=== PATIENT | male | born 1955 | race Caucasian/White ===

== ENCOUNTER → 2023-05-10 08:32 | Outpatient (REF) | payer MEDICARE, OTHER, SELFPAY ==
[2023-05-10 09:43] LABS: % Basophils 1.5 % (0-2); % Eosinophils 6.7 % (0-6); % Immature Granulocytes 0.2 % (0-0.5); % Monocytes 7.5 % (1.7-9.3); % Neutrophils 67.1 % (42.2-75.2); Absolute Basophils 0.1 10^3/uL (0-0.2); Absolute Eosinophils 0.6 10^3/uL (0-0.7); Absolute Lymphocytes 1.5 10^3/uL (1.2-3.4); Absolute Monocytes 0.7 10^3/uL (0.1-0.6); Absolute Neutrophils 6.1 10^3/uL (1.4-6.5); Hematocrit 37.6 % (39.0-52.0); Hemoglobin 12.4 g/dL (13.0-18.0); Mean Corpuscular Hgb 28.8 pg (27.0-31.0); Mean Corpuscular Volume 87.2 fL (80.0-94.0); Mean Platelet Volume 11.4 fL (7.4-10.4); Nucleated Red Blood Cells % 0 % (-); Platelet Count 231 10^3/uL (130-400); Red Blood Cell Count 4.31 10^6/uL (4.70-6.10); Red Cell Dist. Width 13.3 % (11.5-14.5); White Blood Cell Count 9.1 10^3/uL (4.8-10.8)
[2023-05-10 10:28] LABS: ALT (SGPT) 17 U/L (0-50); AST (SGOT) 23 U/L (17-59); Albumin 3.9 g/dl (3.5-5.0); Alkaline Phosphatase 70 U/L (38-126); Blood Urea Nitrogen 23 mg/dl (9-20); Carbon Dioxide 30 mmol/L (22-30); Chloride 103 mmol/L (98-107); Glucose 95 mg/dl (70-99); HDL Cholesterol 37 mg/dl; LDL Cholesterol, Calculated 43 mg/dl; Potassium 3.6 mmol/L (3.5-5.1); Sodium 139 mmol/L (135-145); Total Bilirubin 0.7 mg/dl (0.2-1.3); Total Cholesterol 92 mg/dl (50-199); Total Protein 6.6 g/dl (6.3-8.2); Triglyceride 61 mg/dl (10-149); Very Low Density Lipoprotein 12 mg/dl (0-30); eGFR 40.24
[2023-05-10 10:50] LABS: PSA, Total - Screen 2.94 ng/ml (0.0-4.0)
[2023-05-10 11:41] LABS: Glycohemoglobin (HgbA1c) 5.8 % (4.0-5.6)
== END ==
LOC: REG 08:32
PROVIDERS: ATTENDING PHYSICIAN Internal Medicine
DX: E11.9 Type 2 diabetes mellitus without complications (principal); E78.5 Hyperlipidemia, unspecified; I10 Essential (primary) hypertension; R73.9 Hyperglycemia, unspecified; E66.9 Obesity, unspecified; Z12.5 Encounter for screening for malignant neoplasm of prostate; Z00.00 Encounter for general adult medical examination without abnormal findings
CPT/HCPCS: 36415; 80053; 80061; 83036; 85025; G0103

== ENCOUNTER → 2023-07-05 09:15 | Outpatient (REF) | payer MEDICARE, OTHER, SELFPAY ==
[2023-07-05 10:42] LABS: % Basophils 1.3 % (0-2); % Eosinophils 11.9 % (0-6); % Immature Granulocytes 0.3 % (0-0.5); % Lymphocytes 16.9 % (20.5-51.1); % Monocytes 7.2 % (1.7-9.3); % Neutrophils 62.4 % (42.2-75.2); Absolute Basophils 0.1 10^3/uL (0-0.2); Absolute Eosinophils 1.1 10^3/uL (0-0.7); Absolute Lymphocytes 1.5 10^3/uL (1.2-3.4); Absolute Monocytes 0.7 10^3/uL (0.1-0.6); Absolute Neutrophils 5.7 10^3/uL (1.4-6.5); Hematocrit 35.2 % (39.0-52.0); Hemoglobin 11.9 g/dL (13.0-18.0); Mean Corp Hgb Conc. 33.8 g/dL (33.0-37.0); Mean Corpuscular Hgb 28.5 pg (27.0-31.0); Mean Corpuscular Volume 84.2 fL (80.0-94.0); Mean Platelet Volume 10.9 fL (7.4-10.4); Nucleated Red Blood Cells % 0 % (-); Platelet Count 243 10^3/uL (130-400); Red Blood Cell Count 4.18 10^6/uL (4.70-6.10); Red Cell Dist. Width 13.8 % (11.5-14.5); White Blood Cell Count 9.1 10^3/uL (4.8-10.8)
[2023-07-05 10:56] LABS: Urine Albumin 1+ (Neg - Trace); Urine Bilirubin Negative (Negative); Urine Character Clear (Clear); Urine Color Yellow; Urine Glucose Negative (Negative); Urine Ketone Negative (Negative); Urine Leukocyte Negative (Negative); Urine Nitrite Negative (Negative); Urine Occult Blood Negative (Negative); Urine Urobilinogen 1+ (Neg - 1+); Urine pH 6.5 (5.0-9.0)
[2023-07-05 11:44] LABS: Urine Red Blood Cell None Seen /HPF (0-2); Urine Squamous Cell 0-2 /LPF (Few); Urine White Cell 0-2 /HPF (0-5)
[2023-07-05 11:58] LABS: Blood Urea Nitrogen 25 mg/dl (9-20); Calcium 9.2 mg/dl (8.4-10.2); Carbon Dioxide 27 mmol/L (22-30); Chloride 104 mmol/L (98-107); Glucose 100 mg/dl (70-99); Iron 100 ug/dl (49-181); Phosphorus 3.9 mg/dl (2.5-4.5); Potassium 3.4 mmol/L (3.5-5.1); Sodium 139 mmol/L (135-145)
[2023-07-05 12:07] LABS: Percent Saturation 31 % (20-50); Total Iron Binding Capacity 313 ug/dl (261-462)
[2023-07-05 13:00] LABS: Folate 10.4 ng/ml (2.76-20); Vitamin B12 193 pg/ml (239-931)
== END ==
LOC: REG 09:15
PROVIDERS: ATTENDING PHYSICIAN Specialist; FAMILY PHYSICIAN Internal Medicine
DX: D64.9 Anemia, unspecified (principal); I10 Essential (primary) hypertension; N18.32 Chronic kidney disease, stage 3b; E11.9 Type 2 diabetes mellitus without complications; I35.8 Other nonrheumatic aortic valve disorders; M62.81 Muscle weakness (generalized); D52.9 Folate deficiency anemia, unspecified
CPT/HCPCS: 36415; 80048; 81003; 81015; 82570; 82607; 82746; 83540; 83550; 83970; 84100; 84403; 85025

== ENCOUNTER → 2023-08-29 08:35 | Outpatient (REF) | payer MEDICARE, OTHER, SELFPAY ==
[2023-08-29 09:55] LABS: Blood Urea Nitrogen 26 mg/dl (9-20); Carbon Dioxide 27 mmol/L (22-30); Chloride 106 mmol/L (98-107); Glucose 103 mg/dl (70-99); Potassium 4.2 mmol/L (3.5-5.1); Sodium 139 mmol/L (135-145); eGFR 40.24
== END ==
LOC: REG 08:35
PROVIDERS: ATTENDING PHYSICIAN Internal Medicine; FAMILY PHYSICIAN Specialist; REFERRING PHYSICIAN Internal Medicine Cardiovascular Disease
DX: I10 Essential (primary) hypertension (principal)
CPT/HCPCS: 36415; 80048

== ENCOUNTER → 2023-09-19 08:39 | Outpatient (REF) | payer MEDICARE, OTHER, SELFPAY ==
[2023-09-19 09:43] LABS: ALT (SGPT) 13 U/L (0-50); AST (SGOT) 19 U/L (17-59); Albumin 3.9 g/dl (3.5-5.0); Alkaline Phosphatase 80 U/L (38-126); Blood Urea Nitrogen 20 mg/dl (9-20); Calcium 9.7 mg/dl (8.4-10.2); Carbon Dioxide 28 mmol/L (22-30); Chloride 105 mmol/L (98-107); Direct Bilirubin 0.1 mg/dl (0.0-0.4); Glucose 102 mg/dl (70-99); HDL Cholesterol 42 mg/dl; LDL Cholesterol, Calculated 72 mg/dl; Potassium 3.9 mmol/L (3.5-5.1); Sodium 138 mmol/L (135-145); Total Bilirubin 0.4 mg/dl (0.2-1.3); Total Cholesterol 125 mg/dl (50-199); Total Protein 6.4 g/dl (6.3-8.2); Triglyceride 56 mg/dl (10-149); Very Low Density Lipoprotein 11 mg/dl (0-30)
[2023-09-19 10:21] LABS: Glycohemoglobin (HgbA1c) 5.4 % (4.0-5.6)
== END ==
LOC: REG 08:39
PROVIDERS: ATTENDING PHYSICIAN Internal Medicine; OTHER PHYSICIAN Specialist; REFERRING PHYSICIAN Internal Medicine Cardiovascular Disease
DX: E11.9 Type 2 diabetes mellitus without complications (principal); E78.5 Hyperlipidemia, unspecified; I10 Essential (primary) hypertension; E66.9 Obesity, unspecified; I67.4 Hypertensive encephalopathy
CPT/HCPCS: 36415; 80053; 80061; 82248; 83036

== ENCOUNTER → 2023-11-22 08:35 | Outpatient (REF) | payer MEDICARE, OTHER, SELFPAY ==
[2023-11-22 11:33] LABS: ALT (SGPT) 18 U/L (0-50); AST (SGOT) 25 U/L (17-59); Alkaline Phosphatase 61 U/L (38-126); Direct Bilirubin 0.3 mg/dl (0.0-0.4); Glucose 95 mg/dl (70-99); HDL Cholesterol 39 mg/dl; LDL Cholesterol, Calculated 42 mg/dl; Total Bilirubin 0.8 mg/dl (0.2-1.3); Total Cholesterol 100 mg/dl (50-199); Total Protein 6.6 g/dl (6.3-8.2); Triglyceride 96 mg/dl (10-149); Very Low Density Lipoprotein 19 mg/dl (0-30)
[2023-11-22 13:01] LABS: Glycohemoglobin (HgbA1c) 5.3 % (4.0-5.6)
== END ==
LOC: REG 08:35
PROVIDERS: ATTENDING PHYSICIAN Internal Medicine
DX: E11.59 Type 2 diabetes mellitus with other circulatory complications (principal); I10 Essential (primary) hypertension; E78.5 Hyperlipidemia, unspecified; Z68.41 Body mass index [BMI] 40.0-44.9, adult
CPT/HCPCS: 36415; 80061; 80076; 82947; 83036

== ENCOUNTER → 2023-11-29 08:20 | Outpatient (REF) | payer MEDICARE, OTHER, SELFPAY | LOC: RCS 08:20 | PROVIDERS: ATTENDING PHYSICIAN Internal Medicine | DX: E78.5 Hyperlipidemia, unspecified (principal); I35.8 Other nonrheumatic aortic valve disorders | CPT/HCPCS: 93306 ==

== ENCOUNTER 2024-01-18 19:23 | Observation (INO) | payer MEDICARE, OTHER, SELFPAY ==
[2024-01-18 17:45] VITALS: BP 178/86
[2024-01-18 17:47] LABS: Glucose - Point of Care 128 mg/dl (70-99)
[2024-01-18 17:49] VITALS: BMI 35.0
[2024-01-18 17:50] VITALS: BP 178/86
--- NOTE | 2024-01-18 17:52 | ED.CVA ---
History of Present Illness
General
Chief Complaint: CVA/TIA Symptoms
Source: patient, family and ambulance crew
Exam Limitations: none
Time Seen by Provider: 01/18/24 17:50
Nursing documentation reviewed up to this point in time: agreed with
Onset of Stroke Symptoms
Onset of symptoms known: Yes
Date of onset of symptoms: 01/18/24
Time of onset of symptoms: 15:00
Time pt last seen normal is known: Yes
Date last time pt seen normal: 01/18/24
Time last time pt seen normal: 12:00
History of Present Illness
History of Present Illness:
68 yo male presents to the emergency department due to difficulty speaking. He was last seen normal at noon. Stroke alert called prior to his arrival.
Past History
Past History
ED Past Medical History: GERD, HTN, Hypercholesterolemia, NIDDM, Psychiatric and Other (Angioedema, TIA, Ulcers)
ED Past Surgical History: Cardiac (Cardiac catheterization), Orthopedic (Knee replacement, ankle surgery, epidural, back surgery) and Other (Achilles tendon repair and tendon transfer on 03/2011)
Social History
Tobacco: Former smoker
Alcohol: Occasional
Drug: None
Personal:
Living: with family
Employment: Employed
Family History
Family History: Sudden
Review of Systems
Review of Systems
Allergies reviewed?: Yes
All Other Systems: Not applicable
Constitutional: Reports no symptoms
EENT: Reports no symptoms
Respiratory: Reports no symptoms
Cardiac: Reports no symptoms
ABD/GI: Reports no symptoms
: Reports no symptoms
Musculoskeletal: Reports no symptoms
Skin: Reports no symptoms
Neurological: Reports other (Difficulty speaking)
Endocrine: Reports no symptoms
Hematologic/Lymphatic: Reports no symptoms
Psychiatric: Reports no symptoms
Phy Exam
Physical Exam
Physical Exam:
Physical Exam
General: no apparent distress, not acutely ill
Neck: supple. no meningeal signs. normal posterior pharynx
Heart: s1/s2 regular rate and rhythm, no murmur. equal radial
pulses.
HEENT: Pupils equal round reactive to light, EOMI
Lungs: no acute respiratory distress. clear bilaterally
Abdomen: normal bowel sounds. not tender. no CVAT
Neuro: alert and oriented. Occasionally confused to events. No focal neurological deficits cranial nerves II through XII intact
Skin: no rash
Psychiatric: well kept. interactive and cooperative
Extremities: no edema. no calf tenderness. negative homans. good distal pulses
Course
Orders/Labs/Results
Orders:
Orders
01/18/24 Dinner
1800 calorie (15 carb) Diabetic
At Your Request: Full Participation
Does patient need a safe tray?: No
01/18/24 17:50
Electrocardiogram (*1) Urgent
Reason for Study: TIA/Stroke
EKG- Treatment ONCE
01/18/24 17:51
CT HEAD STROKE ALERT W/o Cont Urgent
Reason For Exam: confusion, altered mental status
01/18/24 17:52
Complete Blood Count/With Diff Urgent
Comprehensive Metabolic Panel Urgent
Erythrocyte Sed Rate Urgent
Comment: ADDON
Glycohemoglobin (HgbA1c) Urgent
Magnesium Urgent
Comment: ADDON
Troponin I Urgent
01/18/24 18:28
EEG Routine Routine
Reason for Exam: encephalopathy
01/18/24 18:33
Add On- LAB Urgent
Tests Added?: magnesium
01/18/24 18:40
Potassium Chloride [KCl] 40 meq 0.9% Sodium Chloride 250 ml [Nss] 250 ml IV NOW
01/18/24 19:14
Admit/Transfer Patient As Directed
Co-Sign Provider:
Level of Care: Observation services
Assign to:: Telemetry
Physician / Group: hospitalist
Diagnosis: CVA/TIA
Reason for Telemetry: CVA/TIA
Date to Stop Telemetry: 01/21/24
Time to Stop Telemetry: 11:00
PRN Pain Medication Management As Directed
May give lesser potent ordered pain med per pt: Yes
preference::
Protocol:: Medication orders for pain may be administered in a
manner that supports deferring to patient preference
when the pt is:
- Requesting an ordered lesser potent pain medication.
Least to most potent pain medications are defined
as: acetaminophen < NSAID < tramadol < opioids
(morphine, oxycodone, hydromorphone).
- Requesting a lesser dose of the same medication IF
ORDERED.
- Requesting a less intrusive route of administration
if both routes are prescribed by the provider (PO <
IV).
01/18/24 19:15
Code Status As Directed
Resuscitation Status: Full Code
01/18/24 19:18
Aspirin 325 mg PO NOW STA
01/18/24 19:20
Potassium Chloride Powder [Klor-Con] 40 meq PO NOW STA
01/18/24 19:21
Urinalysis Routine
Date Specimen was Collected: 01/18/24
Time Specimen was Collected: 19:16
Comment: ADD ON
Urine Drug Abuse Screen Routine
Date Specimen was Collected: 01/18/24
Time Specimen was Collected: 19:16
Urine Microscopic Routine
Date Specimen was Collected: 01/18/24
Time Specimen was Collected: 19:16
01/18/24 20:20
Acetaminophen [Tylenol/Feverall] 650 mg RECTAL Q4HPRN PRN
Acetaminophen [Tylenol] 650 mg PO Q4HPRN PRN
Doxazosin Mesylate [Cardura] 4 mg PO BID
Heparin 5,000 units SC Q12
HydrALAZINE [Apresoline] 10 mg IV Q4HPRN PRN
HydrALAZINE [Apresoline] 50 mg PO BID
01/18/24 20:20
Echo 2D MMode Color/Doppler Routine
Reason for Study: stroke/TIA
NEUROLOGY CONSULT Routine
Consulting Provider: Nevin De Paz
Was physician already notified: Yes
Reason for consult: altered mental status
MR Brain Without Contrast Routine
Comment:
Reason For Exam: stroke/TIA
Recent pill cam endoscopy?: No
Activity As Directed
Activity Level: With Assistance
Bedside Glucose Monitoring As Directed
Frequency: AC&HS
NIH Stroke Scale As Directed
Directions: Per protocol
Comment: every shift and with any change in condition or mental status
Neurological Checks As Directed
Frequency: q4h
Additional Instructions:: q4h x 24h upon admission to the floor, then qshift & with any change in condition
and mental status
Vital Signs As Directed
Frequency: Per unit guidelines
Cpap [RESP] Routine
Patient to use own unit?: No
Set Pressure (cm H2O): 8
Instructions: adjust to patient's comfort
US Cerebrovascular Routine
Comment:
Reason For Exam: stroke/TIA
DX Deep Vein Thrombosis Video Routine
01/18/24 21:00
Dorzolamide HCl [Trusopt 2% Ophthalmic Solution] 1 drop BOTH EYES BID
01/19/24 06:00
Basic Metabolic Panel IN AM
CRP [C-Reactive Protein] IN AM
Cardiovascular Evaluation IN AM
Magnesium IN AM
01/19/24 07:30
Insulin Aspart Corrective Low [Novolog Flexpen-Low Resistance] See Protocol SC AC
01/19/24 08:00
Amlodipine [Norvasc] 10 mg PO DAILY
Atorvastatin [Lipitor] 40 mg PO DAILY
Clopidogrel Bisulfate [Plavix] 75 mg PO DAILY
Duloxetine Delayed Release [Cymbalta Delayed Release] 60 mg PO DAILY
Hydrochlorothiazide [Oretic] 25 mg PO DAILY
METFORMIN HCl [Glucophage] 1,000 mg PO BID@0800,1700
Modafinil [Provigil] 200 mg PO DAILY
Pantoprazole [Protonix] 40 mg PO DAILY
nebivolol 10 mg PO DAILY
solifenacin [Vesicare] 10 mg PO DAILY
01/21/24 11:00
DC Protocol for Telemetry ONCE
Abnormal Lab Results
01/18/24 01/18/24 01/18/24
17:46 17:52 19:21
RBC 4.25 L 10^6/uL
(4.70-6.10)
Hgb 12.2 L g/dL
(13.0-18.0)
Hct 37.2 L %
(39.0-52.0)
MCHC 32.8 L g/dL
(33.0-37.0)
Absolute Neuts (auto) 6.7 H 10^3/uL
(1.4-6.5)
Lymphocytes % 14.5 L %
(20.5-51.1)
Eosinophils % 6.3 H %
(0-6)
Potassium 3.0 L mmol/L
(3.5-5.1)
BUN 25 H mg/dl
(9-20)
Creatinine 1.7 H mg/dL
(0.7-1.3)
Glucose 112 H mg/dl
(70-99)
Calcium 7.9 L mg/dl
(8.4-10.2)
Troponin I 0.049 H* ng/ml
Total Protein 5.9 L g/dl
(6.3-8.2)
Albumin 3.3 L g/dl
(3.5-5.0)
Urine Albumin 2+ A
(Neg - Trace)
POC Glucose 128 H mg/dl
(70-99)
01/18/24 17:52
01/18/24 17:52
Vital Signs
Initial and Last Documented VS:
Initial Vital Signs
Temp Pulse Resp BP Pulse Ox
98.2 F 78 18 178/86 98
01/18/24 17:45 01/18/24 17:45 01/18/24 17:45 01/18/24 17:45 01/18/24 17:45
Last Documented Vital Signs
Temp Pulse Resp BP Pulse Ox
97.9 F 70 20 191/84 98
01/18/24 20:22 01/18/24 21:26 01/18/24 20:22 01/18/24 21:26 01/18/24 20:22
MDM/Problems Addressed
Differential Diagnosis Includes:
CVA, UTI
MDM/Problems Addressed:
68-year-old male with altered mental status, unclear etiology. Patient seen on stroke alert, by neurology. CVA. No focal deficits. Admit to hospitalist for further evaluation.
Chronic conditions affecting care: HTN
Acute Exacerbation and/or Progression of Chronic Illness: HTN
*Radiology
Radiology exam reviewed: radiology read reviewed (CT head no acute findings)
*Pulse Oximetry
Patient hypoxic: no
*EKG
Interpreted by ED Provider?: Yes
EKG Intrepretation Date: 01/18/24
EKG Intrepretation Time: 17:55
Interpretation: abnormal
Comparison EKG: no changes
Heart Rate: 84
Rate: normal
Rhythm: sinus
[place]: normal axis
Interval: normal interval
QRS Pattern: left vent hypertrophy
Ischemia: no ischemia
*Fire Prevention Captain Interpretation
Rate: normal
Interpretation: normal
Heart Rate: 80
Rhythm: sinus
*Critical Care Note
Total Time (30-74mins, 75-104mins- exclusive of procedures): 30
comment:
Critical care statement: A total of 30 minutes of critical care time was provided for this patient. This includes management of unstable vital signs, evaluation of the patient at bedside, reviewing the patient's pertinent medical records, discussion
with consultants, review of old EKGs and review of pertinent medical records. This time with separate from time utilized to perform the aforementioned documented procedures
Data Reviewed
Review of Other/Old Records Reveals: Labs (Prior creatinine 1.7)
Source: records
Patient Management
Social determinants of health affecting care: Living situation
Discussion with other providers: Hospitalist
Escalation/DeEscalation of care consider admission/obs:
Admit indicated.
ED Attending Note
-
Portions of this chart may have been created with voice recognition software.� Occasional wrong word or��sound alike� substitutions may have occurred due to the inherent limitations of voice recognition software.
Discharge Plan
Departure
Patient Disposition: Admit
Date of Disposition: 01/18/24
Time of Disposition: 18:36
Admit to: Telemetry
Presentation/result/management discussed w/ accepting MD/DO: Hospitalist
Condition: Fair
Discharge Problem:
Acute alteration in mental status, Acute hypokalemia
Interventions
Interventions:
*Risk Screen - Suicide Last Done: 01/18/24 20:36
*General Assessment Last Done: 01/18/24 17:53
*Neglect/Abuse Screening Last Done: 01/18/24 17:53
ED- Fall Risk Assessment Last Done: 01/18/24 17:52
*ED COVID-19 Vaccine History Last Done: 01/18/24 17:49
*Nursing Disposition Last Done: 01/18/24 20:16
ED- Pulmonary Assessment Last Done: 01/18/24 17:54
ED- Neurological Assessment Last Done: 01/18/24 17:54
ED- Cardiac Assessment Last Done: 01/18/24 17:56
ED Swallowing Screen Last Done: 01/18/24 19:11
Discharge Date and Time
Discharge Date/Time: 01/18/24 20:20
[2024-01-18 17:58] LABS: % Basophils 1.2 % (0-2); % Eosinophils 6.3 % (0-6); % Immature Granulocytes 0.3 % (0-0.5); % Lymphocytes 14.5 % (20.5-51.1); % Monocytes 6.6 % (1.7-9.3); % Neutrophils 71.1 % (42.2-75.2); Absolute Basophils 0.1 10^3/uL (0-0.2); Absolute Eosinophils 0.6 10^3/uL (0-0.7); Absolute Lymphocytes 1.4 10^3/uL (1.2-3.4); Absolute Monocytes 0.6 10^3/uL (0.1-0.6); Absolute Neutrophils 6.7 10^3/uL (1.4-6.5); Hematocrit 37.2 % (39.0-52.0); Hemoglobin 12.2 g/dL (13.0-18.0); Mean Corp Hgb Conc. 32.8 g/dL (33.0-37.0); Mean Corpuscular Hgb 28.7 pg (27.0-31.0); Mean Corpuscular Volume 87.5 fL (80.0-94.0); Mean Platelet Volume 10.4 fL (7.4-10.4); Nucleated Red Blood Cells % 0 % (-); Platelet Count 213 10^3/uL (130-400); Red Blood Cell Count 4.25 10^6/uL (4.70-6.10); Red Cell Dist. Width 14.3 % (11.5-14.5); White Blood Cell Count 9.4 10^3/uL (4.8-10.8)
[2024-01-18 18:07] VITALS: BP 193/87
--- NOTE | 2024-01-18 18:08 | CON.NEURO ---
Consultation
Order
Date of Consultation: 01/18/24
Reason for Consult: stroke alert
pre-hospital notification: 17:32
Neurology Consultation Note.
CC: none
HPI: This is a 68-year-old man who presented to [facility] with language dysfunction.Last time seen in [facility] [place] around noon.
Mr. Jacobs was seen by neurology service for aphasia in 2018 and 2025. According to the patient's son the patient has had progressive change in personality and behavior for around 4 years. She has been intermittently noncompliant with his
medications as well.
ER VS:178/86, 78, 18, afebrile
PDMP: Modafinil 200 Mg 30 tabs filled in on 12/30/2023. �
Labs: FS 128, normal Na, WBC, K-3.0
CT head-no acute abnormalities, mild atrophy
PMH: CAD, HTN, DLP, CKD, FANG, anemia, excessive daytime sleepiness , GERD, Wagoner's esophagus, psychiatric history?
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
SH:; former smoker; no history of excessive ETOh use
All:ACEIs, Spironolactone
ROS:positive for disinhibition
Assessment and Plan:
I. Encephalopathy. Not a candidate for IV tnk.
II. HTN
III. Hypokalemia
-fall precautions
-please check TSH, free T4, vit B12, ua, ua cx, ua tox.
-Thiamine 100mg QD IV
-Brain MRI wo rosalind
-Routine EEG
-I have left a message for patient's spouse with request to return my call to clarify clinical history
-DVT prophylaxis.
I personally reviewed all radiology and labs along with past medical records pertinent to current medical problems. Total time spent in patient care is 60 minutes.
Thank you for allowing us to participate in the care of this patient. We will continue to follow. Please do not hesitate to contact us with any questions or concerns.
Subjective/Objective
Subjective Data
Date of Service: January 18, 2024
Objective Data
Vital Signs
Temp Pulse Resp BP Pulse Ox
36.8 C 72 23 178/86 98
01/18/24 17:45 01/18/24 17:50 01/18/24 17:50 01/18/24 17:50 01/18/24 17:54
Lab Results
01/18/24 17:52
Patient Allergies
EDDIE Inhibitors [Eddie Inhibitors] Allergy (Verified 01/18/24 17:52)
Tongue Swelling/angioedema- Benazapril
Iodinated Contrast Media [Iodinated Contrast Media - IV Dye] Allergy (Verified 01/18/24 17:52)
Rash
CVA Assessment
NIH Stroke Score
Level of Consciousness: 0 - Alert
LOC Questions: 0-Answers both correctly
LOC Commands: 0-Performs both correctly
Best Horizontal Gaze: 0-Normal
Visual Woodruff: 0=Normal, no visual loss
Facial Palsy: 0=Normal, symmetrical
Motor - Right Arm: 0=No drift 10 seconds
Motor - Left Arm: 0=No drift 10 seconds
Motor - Right Le-No drift 5 seconds
Motor - Left Le-No drift 5 seconds
Limb Ataxia: 0-Absent
Sensation: 0-Normal
Dysarthria: 0-Normal
Extinction and Inattention: 0-No abnormality
Medications
-
Home Medications
�Medication �Instructions �Recorded
duloxetine 60 mg capsule,delayed 60 mg PO DAILY Mental 01/02/16
release Health/Anxiety
aspirin 81 mg chewable tablet 1 tab PO DAILY Blood clot 10/04/17
prevention/tx
doxazosin 2 mg tablet 4 mg PO BID Blood pressure 09/08/18
gabapentin 100 mg capsule 100 mg PO TID Pain 09/08/18
nebivolol 10 mg tablet 10 mg PO DAILY Blood pressure 09/08/18
pantoprazole 40 mg tablet,delayed 40 mg PO DAILY GERD 09/08/18
release
atorvastatin 40 mg tablet 40 mg PO DAILY High cholesterol 08/14/21
biotin 10,000 mcg capsule 10,000 mcg PO DAILY Supplement 08/14/21
clopidogrel 75 mg tablet 75 mg PO DAILY Blood clot 08/14/21
prevention/tx
metformin 1,000 mg tablet 1,000 mg PO BID@0800,1700 Diabetes 08/14/21
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
solifenacin 10 mg tablet (Vesicare) 10 mg PO DAILY BLADDER 08/14/21
thiamine mononitrate (vit B1) 100 100 mg PO DAILY Supplement 08/14/21
mg tablet
zinc sulfate 50 mg zinc (220 mg) 1 cap PO DAILY Supplement 08/14/21
capsule
amlodipine 10 mg tablet 10 mg PO DAILY #30 tabs 08/22/21
hydralazine 50 mg tablet 50 mg PO BID #60 tabs 08/22/21
hydrochlorothiazide 25 mg tablet 25 mg PO DAILY #30 tabs 08/22/21
spironolactone 25 mg tablet 12.5 mg (1/2 x 25 mg) PO BID #30 08/22/21
tabs
Vital Signs and Labs
-
Vital Signs and Labs:
Vital Signs
Temp Pulse Resp BP Pulse Ox
36.8 C 72 23 178/86 98
01/18/24 17:45 01/18/24 17:50 01/18/24 17:50 01/18/24 17:50 01/18/24 17:54
Lab Results
01/18/24 17:52
01/18/24 17:52
Sodium 142 mmol/L (135-145) 01/18/24 17:52
Potassium 3.0 mmol/L (3.5-5.1) L 01/18/24 17:52
BUN 25 mg/dl (9-20) H 01/18/24 17:52
Glucose 112 mg/dl (70-99) H 01/18/24 17:52
Calcium 7.9 mg/dl (8.4-10.2) L 01/18/24 17:52
Home Medications
-
Home Medications
duloxetine 60 mg capsule,delayed release 60 mg PO DAILY Mental Health/Anxiety 01/02/16
nebivolol 10 mg tablet 10 mg PO DAILY Blood pressure 09/08/18
pantoprazole 40 mg tablet,delayed release 40 mg PO DAILY GERD 09/08/18
atorvastatin 40 mg tablet 40 mg PO DAILY High cholesterol 08/14/21
clopidogrel 75 mg tablet 75 mg PO DAILY Blood clot prevention/tx 08/14/21
metformin 1,000 mg tablet 1,000 mg PO BID@0800,1700 Diabetes 08/14/21
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
solifenacin 10 mg tablet (Vesicare) 10 mg PO DAILY BLADDER 08/14/21
amlodipine 10 mg tablet 10 mg PO DAILY #30 tabs 08/22/21
hydralazine 50 mg tablet 50 mg PO BID #60 tabs 08/22/21
hydrochlorothiazide 25 mg tablet 25 mg PO DAILY #30 tabs 08/22/21
dorzolamide-timolol (PF) 2 %-0.5 % eye drops in a dropperette 1 drp BOTH EYES BID 01/18/24
doxazosin 4 mg tablet 4 mg PO BID 01/18/24
erythromycin 5 mg/gram (0.5 %) eye ointment 1 applic BOTH EYES HS 01/18/24
[2024-01-18 18:12] LABS: ALT (SGPT) 16 U/L (0-50); AST (SGOT) 19 U/L (17-59); Albumin 3.3 g/dl (3.5-5.0); Alkaline Phosphatase 66 U/L (38-126); Blood Urea Nitrogen 25 mg/dl (9-20); Calcium 7.9 mg/dl (8.4-10.2); Carbon Dioxide 25 mmol/L (22-30); Chloride 107 mmol/L (98-107); Estimated Creatinine Clearance 49 ml/min; Glucose 112 mg/dl (70-99); Sodium 142 mmol/L (135-145); Total Bilirubin 0.4 mg/dl (0.2-1.3); Total Protein 5.9 g/dl (6.3-8.2); eGFR 42.83
[2024-01-18 18:26] LABS: Troponin I 0.049 ng/ml
--- NOTE | 2024-01-18 18:58 | HPS.HSE ---
Family Physician
-
Family Physician: Alexis Mcginnis
Chief Complaint
-
Episode of expressive aphasia
History of Present Illness
This is a 68-year-old male with past medical history significant for nonobstructive CAD, hypertension, hyperlipidemia, and oxt-[id number] diabetes, overactive bladder, prior episode of TIA who presents to the emergency department with
expressive aphasia that lasted for about 30 minutes before improvement.
Patient was last seen normal at around 12 noon. Then around 5 PM family noted that he had a garbled speech. He was speaking but was not making sense. The words were coming out normally but were unintelligible. Patient himself reported that he
was unable to stated names of his pets correctly. He reported having a headache at that time over the left denominational. Otherwise he denied any vision changes. He denied any numbness or tingling. He denies any focal weakness in his upper or lower
extremities. Patient denies any recent changes in urinary symptoms. He denies cough fevers or chills. He denies any medication changes. Family reports history of noncompliance and a prior episode of hypotensive episode with altered mental status
about 6 months ago.
He reports chronic dyspnea on exertion without any intermittent changes. He denies any palpitations dizziness or recent lightheadedness.
In the emergency department he was afebrile, he was hypertensive to 180/80 with a pulse of 72 satting at 98% on room air. ECG with normal sinus rhythm and no acute ischemic changes. His troponin was 0.049. CBC was unremarkable. BUN, creatinine
were 25, 1.7 and electrolytes notable for potassium of 3.0.
CT of the head shows no acute intracranial process. Patient seen by neurology. Acute CVA ruled out and patient not a candidate for TNK.
Medical History
Past Medical History
Past Medical History: Reports CAD (No stents), CVA (TIA), HTN, Hypercholesterolemia and NIDDM
Additional Past Medical History:
FANG on CPAP
Overactive bladder
h/o angioedema
Past Surgical History: Reports Orthopedic (Knee replacement)
Social History
Tobacco: Former Smoker
Alcohol: None
Drug: None
Personal:
Living: With Family
Employment: Not Employed
Family History
Family History: Not pertinent
Allergies / Home Medications
Allergies reflects when Allergies were last updated in [employer].
Home Medications with original date entered in [employer]
Allergy/Medication List:
Allergies
Allergy/AdvReac Type Severity Reaction Status Date / Time
EDDIE Inhibitors Allergy Tongue Verified 01/18/24 17:52
[Eddie Inhibitors] Swelling/angioedema-
Benazapril
Iodinated Contrast Media Allergy Rash Verified 01/18/24 17:52
[Iodinated Contrast Media -
IV Dye]
Home Medications
duloxetine 60 mg capsule,delayed release 60 mg PO DAILY Mental Health/Anxiety 01/02/16
nebivolol 10 mg tablet 10 mg PO DAILY Blood pressure 09/08/18
pantoprazole 40 mg tablet,delayed release 40 mg PO DAILY GERD 09/08/18
atorvastatin 40 mg tablet 40 mg PO DAILY High cholesterol 08/14/21
clopidogrel 75 mg tablet 75 mg PO DAILY Blood clot prevention/tx 08/14/21
metformin 1,000 mg tablet 1,000 mg PO BID@0800,1700 Diabetes 08/14/21
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
solifenacin 10 mg tablet (Vesicare) 10 mg PO DAILY BLADDER 08/14/21
amlodipine 10 mg tablet 10 mg PO DAILY #30 tabs 08/22/21
hydralazine 50 mg tablet 50 mg PO BID #60 tabs 08/22/21
hydrochlorothiazide 25 mg tablet 25 mg PO DAILY #30 tabs 08/22/21
dorzolamide-timolol (PF) 2 %-0.5 % eye drops in a dropperette 1 drp BOTH EYES BID 01/18/24
doxazosin 4 mg tablet 4 mg PO BID 01/18/24
erythromycin 5 mg/gram (0.5 %) eye ointment 1 applic BOTH EYES HS 01/18/24
Review of Systems
-
History Source: Patient
Constitutional: Reports No Symptoms
EENT: Reports No Symptoms
Respiratory: Reports No Symptoms
Cardiac: Reports No Symptoms
Abdomen/GI: Reports No Symptoms
: Reports No Symptoms
Musculoskeletal: Reports No Symptoms
Neurological: Reports Other (expressive aphasia)
Endocrine: Reports No Symptoms
Hematologic/Lymphatic: Reports No Symptoms
Psych: Reports No Symptoms
Physical Exam
Vital Signs
Vital Signs
Temp Pulse Resp BP Pulse Ox
98.2 F 75 14 193/87 97
01/18/24 17:45 01/18/24 18:45 01/18/24 18:45 01/18/24 18:07 01/18/24 18:45
Physical Exam
General: Well Developed, Well Nourished, No Apparent Distress and Comfortable
HEENT: NormoCephalic, Anicteric, Moist mucous membranes and Atraumatic
Respiratory: Clear
Cardiac: S1/S2 and Regular Rhythm
Breast: Deferred by me
GI: Soft, Non Tender, Non Distended and Normal Bowel Sounds
Rectal: Deferred by Provider
Genito-urinary: Deferred by me
Musculoskeletal: No Clubbing, No Cyanosis and No Edema
Skin: Warm
Neuro: AO x 3
Hematologic/Lymphatic: No Lymphadenopathy
Psych: Calm
Laboratory Results
-
01/18/24 17:52
01/18/24 17:52
Laboratory Results
Total Bilirubin 0.4 mg/dl (0.2-1.3) 01/18/24 17:52
AST 19 U/L (17-59) 01/18/24 17:52
ALT 16 U/L (0-50) 11/24/24 17:52
Alkaline Phosphatase 66 U/L (38-126) 01/18/24 17:52
Troponin I 0.049 ng/ml H* 01/18/24 17:52
Data Reviewed
-
CT Scan: Report Reviewed by me
Medical Tests (Nuc Med, Echo, EKG etc): Image Personally Visualized and interpreted
Lab Data: Labs Reviewed by me
Old Records: Reviewed
Impression/Plan
-
IMPRESSION:
68 y.o with episode of altered speech lasting about 30 minutes now improved. Appears to back to baseline. No current focal deficits. He is alert and oriented and appropriate. Does not appears to have confusion, hallucinations or delusions. W/U
is negative for acute stroke so far. Possibly TIA vs hypertensive encephalopathy.
PLAN:
1. AMS- TIA vs hypertensive encephalopathy or metabolic encephalopathy.
- admit to telemetry
- neurochecks q 6
- mri in am, eeg per neur
- continue plavix, statin
- check u/a, utox
- given headache, check crp, esr
- routine tsh, b12,
- thiamine 100 mg iv daily
- BP control (patient non-compliant), prn hydralazine
2. Elevated troponin - No chest pain or ECG changes. Prior non-obstructive CAD. Trop 0.049
- telemetry
- asa 162 x 1
- trend troponins for now
- echo in am
- continue home plavix and statin
3. DM II
- continue metformin with sliding scale inslin
4. Hypokalemia - On HCTZ. Family reports history of hypokalemia
- check mag
- replete K to goal > 4
- daily K repletion while on hctz despite renal function
5. CKD - stage III, DM II
- currently stable
- avoid nephrotoxin
6. FANG
- cpap hs
DVT PPX - heparin sq
Code status - full code
[2024-01-18 19:00] VITALS: BP 185/87
[2024-01-18 19:04] LABS: Magnesium 1.8 mg/dl (1.6-2.3)
[2024-01-18] MEDS: KCL 270 MEQ IV (19:09)
[2024-01-18] MEDS: KLOR-CON 40 MEQ PO (19:26)
[2024-01-18] MEDS: ASPIRIN 325 MG PO (19:26)
[2024-01-18 19:39] LABS: Amphetamines Negative (Negative); Barbiturates Negative (Negative); Benzodiazepines Negative (Negative); Buprenorphine Negative (Negative); Cocaine Negative (Negative); Marijuana Negative (Negative); Methadone Negative (Negative); Methamphetamines Negative (Negative); Opiates Negative (Negative); Phencyclidine Negative (Negative); Tricyclic Antidepressants Negative (Negative)
[2024-01-18 19:53] LABS: Urine Albumin 2+ (Neg - Trace); Urine Bilirubin Negative (Negative); Urine Character Clear (Clear); Urine Color Yellow; Urine Glucose Negative (Negative); Urine Ketone Negative (Negative); Urine Leukocyte Negative (Negative); Urine Nitrite Negative (Negative); Urine Occult Blood Negative (Negative); Urine Urobilinogen Negative (Neg - 1+); Urine pH 6.5 (5.0-9.0)
[2024-01-18 20:11] LABS: Urine Mucus Few
[2024-01-18 20:12] LABS: Urine Red Blood Cell 0-2 /HPF (0-2); Urine White Cell 0-2 /HPF (0-5)
[2024-01-18 20:22] VITALS: BP 191/84; BMI 34.3
[2024-01-18] MEDS: CARDURA 4 MG PO (21:26)
[2024-01-18] MEDS: APRESOLINE 50 MG PO (21:26)
[2024-01-18] MEDS: TIMOPTIC 0.5% OPHTHALMIC SOLUTION 1 DROP BOTH EYES (21:27)
[2024-01-18] MEDS: TRUSOPT 2% OPHTHALMIC SOLUTION 1 DROP BOTH EYES (21:27)
[2024-01-18] MEDS: HEPARIN 5000 UNITS SC (21:27)
[2024-01-18 21:35] LABS: Glucose - Point of Care 112 mg/dl (70-99)
[2024-01-18 22:09] LABS: Erythrocyte Sed Rate 11 mm/hour (0-20)
[2024-01-18 23:09] LABS: Troponin I 0.061 ng/ml
[2024-01-18 23:35] VITALS: BP 166/78
[2024-01-19] VITALS (8 sets, daily range): BP systolic 87–189; BP diastolic 62–90
--- NOTE | 2024-01-19 02:02 | PTCARENOTE ---
Pt aaox3 able to make his needs known. Pt denies of any pain,resting comfortably. Pt provided with stroke packet. Pt oriented to room & call chang in reach.
[2024-01-19] MEDS: APRESOLINE 10 MG IV (04:47)
[2024-01-19 07:17] LABS: Glucose - Point of Care 106 mg/dl (70-99)
[2024-01-19 08:18] LABS: Troponin I 0.058 ng/ml
[2024-01-19 08:19] LABS: Blood Urea Nitrogen 25 mg/dl (9-20); Calcium 8.6 mg/dl (8.4-10.2); Carbon Dioxide 29 mmol/L (22-30); Chloride 104 mmol/L (98-107); Estimated Creatinine Clearance 41 ml/min; Glucose 98 mg/dl (70-99); HDL Cholesterol 32 mg/dl; LDL Cholesterol, Calculated 79 mg/dl; Potassium 3.3 mmol/L (3.5-5.1); Sodium 140 mmol/L (135-145); Total Cholesterol 142 mg/dl (50-199); Triglyceride 159 mg/dl (10-149); Very Low Density Lipoprotein 31 mg/dl (0-30); eGFR 35.24
[2024-01-19 08:27] LABS: C-Reactive Protein < 5.00 mg/L (0.0-10.00)
[2024-01-19] MEDS: PLAVIX 75 MG PO (08:29)
[2024-01-19] MEDS: PROTONIX 40 MG PO (08:29)
[2024-01-19] MEDS: PROVIGIL 200 MG PO (08:29)
[2024-01-19] MEDS: LIPITOR 40 MG PO (08:31)
[2024-01-19] MEDS: CYMBALTA DELAYED RELEASE 60 MG PO (08:31)
[2024-01-19] MEDS: NORVASC 10 MG PO (08:31)
[2024-01-19] MEDS: CARDURA 4 MG PO ×2 (08:32→20:15)
[2024-01-19] MEDS: THIAMINE INJECTION 100 MG IV (08:32)
[2024-01-19] MEDS: HEPARIN 5000 UNITS SC ×2 (08:32→20:15)
[2024-01-19] MEDS: GLUCOPHAGE 1000 MG PO ×2 (08:32→16:14)
[2024-01-19] MEDS: APRESOLINE 50 MG PO ×3 (08:32→23:00)
[2024-01-19] MEDS: ORETIC 25 MG PO (08:32)
[2024-01-19] MEDS: TRUSOPT 2% OPHTHALMIC SOLUTION 1 DROP BOTH EYES ×2 (08:33→20:16)
[2024-01-19] MEDS: TIMOPTIC 0.5% OPHTHALMIC SOLUTION 1 DROP BOTH EYES ×2 (08:33→20:16)
--- NOTE | 2024-01-19 08:41 | W.PN.NEURO.1 ---
Today's Communication / Plan
-
Restart vitamin B12 1000 mcg by mouth daily, initiated in 2015
Continue thiamine replacement
Continue atorvastatin
Continue clopidogrel
Outpatient EEG can be considered
Outpatient neuropsychological evaluation can be considered
Neuro Assessment/Plan
Assessment
Recurrent episodes of aphasia beginning in 2016.
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 Differential diagnosis includes vitamin B12 deficiency producing an overall decline with behavioral changes.
Plan
Restart vitamin B12 1000 mcg by mouth daily, initiated in 2015
Continue thiamine replacement
Continue atorvastatin
Continue clopidogrel
Outpatient EEG can be considered
Outpatient neuropsychological evaluation can be considered
We will follow as needed. Please contact us with additional questions or issues
Subjective/Objective
Subjective Data
Date of Service: January 19, 2024
Objective Data
Vital Signs
Temp Pulse Resp BP Pulse Ox
36.7 C 57 16 172/88 96
01/19/24 03:32 01/19/24 06:08 01/19/24 03:32 01/19/24 06:08 01/19/24 03:32
Lab Results
01/18/24 17:52
01/19/24 06:51
Sodium 140 mmol/L (135-145) 01/19/24 06:51
Potassium 3.3 mmol/L (3.5-5.1) L 01/19/24 06:51
BUN 25 mg/dl (9-20) H 01/19/24 06:51
Glucose 98 mg/dl (70-99) 01/19/24 06:51
Calcium 8.6 mg/dl (8.4-10.2) 01/19/24 06:51
LDL Cholesterol, Calc 79 mg/dl 01/19/24 06:51
Ur Buprenorphine Negative (Negative) 01/18/24 19:21
Patient Allergies
EDDIE Inhibitors [Eddie Inhibitors] Allergy (Verified 01/18/24 17:52)
Tongue Swelling/angioedema- Benazapril
Iodinated Contrast Media [Iodinated Contrast Media - IV Dye] Allergy (Verified 01/18/24 17:52)
Rash
Data Reviewed
-
CT Head: Report Reviewed
MRI Head: Report Reviewed
Labs: Report Reviewed
Reviewed with: Physician
Old Records: Summarized
Past History
Past History
ED Past Medical History: GERD, HTN, Hypercholesterolemia, NIDDM, Psychiatric and Other (Angioedema, TIA, Ulcers)
ED Past Surgical History: Cardiac (Cardiac catheterization), Orthopedic (Knee replacement, ankle surgery, epidural, back surgery) and Other (Achilles tendon repair and tendon transfer on 03/2011)
Social History
Tobacco: Former smoker
Alcohol: Occasional
Drug: None
Personal:
Living: with family
Employment: Employed
Family History
Family History: Sudden
Medications
-
Medications:
Generic Name Dose Route Start Last Admin
Trade Name Freq PRN Reason Stop Dose Admin
Acetaminophen 650 mg 01/18/24 20:20
Acetaminophen 650 Mg Rectal Suppository RECTAL 02/15/24 20:19
Q4HPRN PRN
MORENO, mild pain, or temp >100.4F
Acetaminophen 650 mg 01/18/24 20:20
Acetaminophen 325 Mg Tablet PO 02/15/24 20:19
Q4HPRN PRN
MORENO, mild pain, or temp >100.4F
Amlodipine Besylate 10 mg 01/19/24 08:00
Amlodipine 10 Mg Tablet PO 02/16/24 07:59
DAILY BÁRBARA
Atorvastatin Calcium 40 mg 01/19/24 08:00
Atorvastatin (Lipitor) 40 Mg Tablet PO 02/16/24 07:59
DAILY BÁRBARA
Clopidogrel Bisulfate 75 mg 01/19/24 08:00
Clopidogrel 75 Mg Tablet PO 02/16/24 07:59
DAILY BÁRBARA
Cyanocobalamin 1,000 mcg 01/19/24 10:00
Cyanocobalamin 1,000 Mcg Tablet PO 02/16/24 09:59
DAILY BÁRBARA
Dorzolamide HCl 1 drop 01/18/24 21:00 01/18/24 21:27
Dorzolamide 2% (Ophthalmic Solution) 10 Ml Bottle BOTH EYES 02/15/24 20:59 1 drop
BID BÁRBARA Administration
Doxazosin Mesylate 4 mg 01/18/24 20:20 01/18/24 21:26
Doxazosin 4 Mg Tablet PO 02/15/24 20:19 4 mg
BID BÁRBARA Administration
Duloxetine HCl 60 mg 01/19/24 08:00
Duloxetine Delayed Release 60 Mg Capsule PO 02/16/24 07:59
DAILY BÁRBARA
Heparin Sodium 5,000 units 01/18/24 20:20 01/18/24 21:27
Heparin 5,000 Units/Ml 1 Ml Vial SC 02/15/24 20:19 5,000 units
Q12 BÁRBARA Administration
Hydralazine HCl 50 mg 01/18/24 20:20 01/18/24 21:26
Hydralazine 50 Mg Tablet PO 02/15/24 20:19 50 mg
BID BÁRBARA Administration
Hydralazine HCl 10 mg 01/18/24 20:20 01/19/24 04:47
Hydralazine 20 Mg/Ml Vial IV 02/15/24 20:19 10 mg
Q4HPRN PRN Administration
SBP > 180
Hydrochlorothiazide 25 mg 01/19/24 08:00
Hydrochlorothiazide 25 Mg Tablet PO 02/16/24 07:59
DAILY BÁRBARA
Insulin Aspart 0 units 01/19/24 07:30 01/19/24 08:25
Insulin Aspart Low Resistance 300 Units/3 Ml Pen.Injctr SC 02/16/24 07:29 Not Given
AC BÁRBARA
Protocol
Metformin HCl 1,000 mg 01/19/24 08:00
Metformin 1000 Mg Regular Release Tablet PO 02/16/24 07:59
BID@0800,1700 BÁRBARA
Modafinil 200 mg 01/19/24 08:00
Modafinil 200 Mg Tablet PO 02/16/24 07:59
DAILY BÁRBARA
Non-Formulary Medication 10 mg 01/19/24 08:00
Nebivolol PO 02/16/24 07:59
DAILY BÁRBARA
Non-Formulary Medication 10 mg 01/19/24 08:00
Solifenacin [Vesicare] PO 02/16/24 07:59
DAILY BÁRBARA
Pantoprazole Sodium 40 mg 01/19/24 08:00
Pantoprazole 40 Mg Delayed Release Tablet PO 02/16/24 07:59
DAILY BÁRBARA
Sodium Chloride 0 flush 01/18/24 21:00
Sodium Chloride 0.9% (Flush) Syringe IV 02/15/24 20:59
PER PROTOCOL BÁRBARA
Thiamine HCl 100 mg 01/19/24 08:00
Thiamine (100 Mg/Ml) 2 Ml Vial IV 02/16/24 07:59
DAILY BÁRBARA
Timolol Maleate 1 drop 01/18/24 21:00 01/18/24 21:27
Timolol 0.5% (Ophthalmic Solution) Bottle BOTH EYES 02/15/24 20:59 1 drop
BID BÁRBARA Administration
[2024-01-19 09:03] LABS: TSH Reflex To Free T4 1.15 uIU/ml (0.47-4.68)
[2024-01-19 09:22] LABS: Vitamin B12 229 pg/ml (239-931)
--- NOTE | 2024-01-19 10:51 | W.PN.HOSP.TC ---
Today's Communication/Plan
-
see bold
Assessment / Plan
Assessment / Plan
68 y.o with episode of altered speech lasting about 30 minutes now improved. Appears to back to baseline. No current focal deficits. He is alert and oriented and appropriate. Does not appears to have confusion, hallucinations or delusions. W/U
is negative for acute stroke so far. Possibly TIA vs hypertensive encephalopathy.
Gen: NAD, AAOx3.
Eyes: EOMI, PERRLA, no scleral icterus.
Neck: supple.
CV: RRR, +S1/S2, no m/r/g.
Resp: CTAB, no rales, wheezes, or rhonchi.
Abd: +BS, soft, NT, ND
Skin: No rashes.
Neuro: CN 2-12 intact, non-focal.
Psych: Normal mood and affect.
CT brain: No acute intracranial abnormality.
MRI brain: No MRI evidence for an acute infarct.
Expressive aphasia, acute encephalopathy:
-TIA vs hypertensive encephalopathy vs acute metabolic encephalopathy
-neurochecks/tele
-check EEG
-neuro c/s
-cont Plavix/statin
-cont Norvasc/Cardura/HCTZ/Bystolic
-increase Hydralazine to 50mg TID
Elevated troponin:
-no CP or acute ECG changes
-h/o non-obstructive CAD
-trops minimally elevated and flat
-likely nonischemic myocardial injury
Other problems:
DM2: SSI/accuchecks/metformin
Hypokalemia:
GRAHAM on CKD3a: Cr 2.0 from 1.7, trend
FANG: cont CPAP HS
Obesity due to excess calories
FULL/heparin
Anticipated Discharge: 24 - 48 hours
Subjective/Interval History
-
Date of Service: January 19, 2024
No new complaints.
Objective Data
-
Labs:
Laboratory Results
01/19/24
06:51
Sodium 140
Potassium 3.3 L
Chloride 104
Carbon Dioxide 29
BUN 25 H
Creatinine 2.0 H
Glucose 98
Calcium 8.6
Vital Signs:
Vital Signs
Temp Pulse Resp BP Pulse Ox
98.1 F 65 18 188/87 95
01/19/24 07:30 01/19/24 08:31 01/19/24 07:30 01/19/24 08:31 01/19/24 07:30
I&O
01/18/24 01/19/24 01/20/24
06:59 06:59 06:59
Output Total 380 / 380
Balance -380 / -380
--- NOTE | 2024-01-19 11:09 | CON.CAR ---
Addendum entered and electronically signed by Roman Olson DO 01/19/24 15:10:
I saw and examined the patient.
The Records Management Engineer's note was reviewed and I agree with the note.
Comment:
Plan:
Continue blood pressure control
NonMI trop likely secondary to HTN
Change amlodipine from 10 mg daily to 5 mg BID.
Decrease hydralazine back to 50 mg BID.
Cont nebivolol 10 mg daily
Stop HCTZ due to GRAHAM on CKD 3b and hypotension at present.
2 week CAM monitor to be applied as an outpatient
Neuro input appreciated. Some symptoms related to cognitive disorder
MRI negative for acute findings.
Original Note:
Consultation
Consultation Request
Date/Time Consultation Requested: 01/19/24 at 0308
Date/Time Consultation Performed: 01/19/24 at 1130
Requesting Provider: Dr. Rolon
Performing Provider: Dr. Olson
Reason for Consultation: Elevated Troponin
Medical History
-
History of Present Illness:
Patient came to ER yesterday with expressive aphasia and was admitted for possible TIA and cardiology is now consulted for elevated troponin and also for history of labile hypertension. Patient has a history of TIA thought to be related to
hypertension in 2015 and 2018. He also had an admission for malignant hypertension and pulmonary edema in 07/2021. Most recently he was admitted to [facility] 06/2023 with syncope and hypotension. Apparently he was hyponatremic at that time as well and
since then he has been increasing his salt intake by eating Ramen noodles 1-2 times a day. After the [facility] admission the patient saw Dr. Murillo as a new patient on 08/21/2023. Blood pressure in the office that day was good, but home blood pressure
values were not known. During that office visit they talked about possibly discontinuing modafinil as it can be associated with hypertension, but the patient felt he could not stop that medicine. Instead he stayed on all of his usual medications
and the plan was to follow-up with Dr. Murillo in about 6 months or sooner if needed. Patient says that yesterday he was out of breath walking from his car into his home and so he laid down to take a nap. He awoke from the nap unable to speak
normally and his noted expressive aphasia and called 911. In ER the CT of the head was negative and symptoms were improving so no lytic therapy was issued. MRI of the brain from overnight showed no evidence of acute infarct. Troponin was
checked and peaked at 0.061. The patient denies any chest pain. ECG reviewed by me showed NSR without acute ischemic changes.
PMH:
Labile HTN
h/o syncope and hypotension admission to [facility] 06/2023
h/o malignant HTN and pulmonary edema 07/2021
h/o TIA thought to be related to HTN 2015 and 2018
DM 2
CKD 3a
h/o EDDIE inhibitor associated angioedema
Past Medical History
Past Medical History: Other (in HPI)
Past Surgical History: Orthopedic
Social History
Tobacco: Former Smoker
Alcohol: Occasional
Drug: None
Personal:
Living: With Family
Family History
Family History: Diabetes and Hypertension
Allergies / Home Medications
Allergy/AdvReac Type Severity Reaction Status Date / Time
EDDIE Inhibitors Allergy Tongue Verified 01/18/24 17:52
[Eddie Inhibitors] Swelling/angioedema-
Benazapril
Iodinated Contrast Media Allergy Rash Verified 01/18/24 17:52
[Iodinated Contrast Media -
IV Dye]
�Medication �Instructions �Recorded �Confirmed �Type
duloxetine 60 mg capsule,delayed 60 mg PO DAILY Mental 01/02/16 01/18/24 History
release Health/Anxiety
nebivolol 10 mg tablet 10 mg PO DAILY Blood pressure 09/08/18 01/18/24 History
pantoprazole 40 mg tablet,delayed 40 mg PO DAILY GERD 09/08/18 01/18/24 History
release
atorvastatin 40 mg tablet 40 mg PO DAILY High cholesterol 08/14/21 01/18/24 History
clopidogrel 75 mg tablet 75 mg PO DAILY Blood clot 08/14/21 01/18/24 History
prevention/tx
metformin 1,000 mg tablet 1,000 mg PO BID@0800,1700 Diabetes 08/14/21 01/18/24 History
modafinil 200 mg tablet 200 mg PO DAILY MANAGER [employer]OV[employer]IMULANT 08/14/21 01/18/24 History
solifenacin 10 mg tablet (Vesicare) 10 mg PO DAILY BLADDER 08/14/21 01/18/24 History
amlodipine 10 mg tablet 10 mg PO DAILY #30 tabs 08/22/21 01/18/24 Rx
hydralazine 50 mg tablet 50 mg PO BID #60 tabs 08/22/21 01/18/24 Rx
hydrochlorothiazide 25 mg tablet 25 mg PO DAILY #30 tabs 08/22/21 01/18/24 Rx
dorzolamide-timolol (PF) 2 %-0.5 % 1 drp BOTH EYES BID Eye Condition 01/18/24 01/18/24 History
eye drops in a dropperette
doxazosin 4 mg tablet 4 mg PO BID Blood Pressure 01/18/24 01/18/24 History
erythromycin 5 mg/gram (0.5 %) eye 1 applic BOTH EYES HS Infection 01/18/24 01/18/24 History
ointment
Review of Systems
-
History Source: Patient
All other systems: Negative unless noted
Physical Exam
Vital Signs
Temp Pulse Resp BP Pulse Ox
98.1 F 65 18 188/87 95
01/19/24 07:30 01/19/24 08:31 01/19/24 07:30 01/19/24 08:31 01/19/24 07:30
GEN: NAD. TAYLORO ro person, place and situation
HEENT: EOMI, MMM
LUNGS: CTA B/L, no wheezes or rales
CV: Reg, S1/S2, no murmur
ABD: soft, BS+, NT, ND
EXT: No clubbing, cyanosis, lesions or edema B/L
NEURO: Gross non-focal
SKIN: Warm, dry and pink. No rash
Lab Results
01/18/24 17:52
01/19/24 06:51
Troponin I 0.058 ng/ml H* 01/19/24 06:51
Impression / Plan
-
PCP: Dr. Mcginnis
Cardiology: Dr. NESSA Murillo
Impression:
Admitted with expressive aphasia 01/19/24
Suspected HTN encephalopathy
Elevated Troponin
Hypokalemia
Labile HTN
h/o syncope and hypotension admission to [facility] 06/2023
h/o malignant HTN and pulmonary edema 07/2021
h/o TIA thought to be related to HTN 2015 and 2018
DM 2
GRAHAM on CKD 3a
h/o EDDIE inhibitor associated angioedema
Echo 11/29/2023: EF 55 to 60%, mild concentric LVH with stage II diastolic dysfunction, mild to moderate MR, mildly thickened aortic valve peak/mean 16/8 mmHg with trace aortic insufficiency
Plan:
-Patient came to ER yesterday with expressive aphasia and was admitted for possible TIA and cardiology is now consulted for elevated troponin and also for history of labile hypertension. Patient has a history of TIA thought to be related to
hypertension in 2015 and 2018. He also had an admission for malignant hypertension and pulmonary edema in 07/2021. Most recently he was admitted to [facility] 06/2023 with syncope and hypotension. Apparently he was hyponatremic at that time as well and
since then he has been increasing his salt intake by eating Ramen noodles 1-2 times a day. After the [facility] admission the patient saw Dr. Murillo as a new patient on 08/21/2023. Blood pressure in the office that day was good, but home blood pressure
values were not known. During that office visit they talked about possibly discontinuing modafinil as it can be associated with hypertension, but the patient felt he could not stop that medicine. Instead he stayed on all of his usual medications
and the plan was to follow-up with Dr. Murillo in about 6 months or sooner if needed. Patient says that yesterday he was out of breath walking from his car into his home and so he laid down to take a nap. He awoke from the nap unable to speak
normally and his noted expressive aphasia and called 911. In [facility] ER the CT of the head was negative and symptoms were improving so no lytic therapy was issued. MRI of the brain from overnight showed no evidence of acute infarct. Troponin was
checked and peaked at 0.061. The patient denies any chest pain. ECG reviewed by me showed NSR without acute ischemic changes.
-Troponin peaked at 0.061 in the setting of hypertensive urgency on admission. Patient has a history of labile hypertension with previous admissions for hypertensive emergency and end organ damage but also separately admissions for syncope and
hypotension.
-Cardiology would recommend changing amlodipine from 10 mg daily to 5 mg BID.
-Recommend decreasing hydralazine back to 50 mg BID.
-Recommend continuing nebivolol 10 mg daily
-Recommend discontinuing HCTZ due to GRAHAM on CKD 3b
-Cont outpatient dose of doxazosin 4 mg BID
-Hospitalist attending has already supplemented potassium
-Would continue to recommend discontinuation of modafinil as it can cause these problems. Patient feels strongly that he needs this medication.
-Will arrange for a 2 week CAM monitor to be applied as an outpatient
[2024-01-19 11:17] LABS: Glycohemoglobin (HgbA1c) 5.5 % (4.0-5.6)
[2024-01-19 11:36] LABS: Glucose - Point of Care 119 mg/dl (70-99)
[2024-01-19] MEDS: BYSTOLIC PO (13:17)
[2024-01-19] MEDS: VITAMIN B-12 1000 MCG PO (13:31)
[2024-01-19] MEDS: DETROL LA 4 MG PO (13:31)
--- NOTE | 2024-01-19 14:13 | CM ---
CM met with Benson earlier today to complete IA. Benson was admitted to OBS status with aphasia which has now resolved.
He asked that I speak his about the RISO form, as she is the 'medical person in the family'. RIOS provided and signed by Benson's ; placed in chart. Copy provided.
Benson lives with his in a townhouse with 6 entry steps to the main floor and 6 more steps to the upper level. He and his are both (I) amb and adls. 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
Plan: Discharge to home with no needs when medically cleared.
PCP: Navi Mcginnis
Pharmacy: [facility] in [place].
[2024-01-19 16:24] LABS: Glucose - Point of Care 107 mg/dl (70-99)
[2024-01-19 21:40] LABS: Glucose - Point of Care 102 mg/dl (70-99)
[2024-01-20] VITALS (8 sets, daily range): BP systolic 135–194; BP diastolic 61–97; PULSE 86
[2024-01-20] MEDS: CYMBALTA DELAYED RELEASE 60 MG PO (08:40)
[2024-01-20] MEDS: PROVIGIL 200 MG PO (08:41)
[2024-01-20] MEDS: LIPITOR 40 MG PO (08:41)
[2024-01-20] MEDS: PROTONIX 40 MG PO (08:41)
[2024-01-20] MEDS: CARDURA 4 MG PO ×2 (08:41→20:36)
[2024-01-20] MEDS: VITAMIN B-12 1000 MCG PO (08:41)
[2024-01-20] MEDS: PLAVIX 75 MG PO (08:41)
[2024-01-20] MEDS: BYSTOLIC 10 MG PO (08:41)
[2024-01-20 08:42] LABS: Glucose - Point of Care 107 mg/dl (70-99)
[2024-01-20] MEDS: GLUCOPHAGE 1000 MG PO (08:42)
[2024-01-20] MEDS: APRESOLINE 50 MG PO ×2 (08:42→20:36)
[2024-01-20] MEDS: NORVASC 10 MG PO (08:42)
[2024-01-20] MEDS: ORETIC 25 MG PO (08:43)
[2024-01-20] MEDS: HEPARIN 5000 UNITS SC ×2 (08:43→20:36)
[2024-01-20] MEDS: DETROL LA 4 MG PO (08:43)
[2024-01-20] MEDS: THIAMINE INJECTION 100 MG IV (08:44)
[2024-01-20] MEDS: TRUSOPT 2% OPHTHALMIC SOLUTION 1 DROP BOTH EYES ×2 (08:44→20:41)
[2024-01-20] MEDS: TIMOPTIC 0.5% OPHTHALMIC SOLUTION 1 DROP BOTH EYES ×2 (08:44→20:37)
--- NOTE | 2024-01-20 09:26 | W.PN.HOSP.TC ---
Today's Communication/Plan
-
see bold
Assessment / Plan
Assessment / Plan
Gen: NAD, AAOx3.
Eyes: EOMI, PERRLA, no scleral icterus.
Neck: supple.
CV: remains RRR, +S1/S2, no m/r/g.
Resp: remains CTAB, no rales, wheezes, or rhonchi.
Abd: +BS, soft, NT, ND
Skin: No rashes.
Neuro: remains CN 2-12 intact, non-focal.
Psych: Normal mood and affect.
CT brain: No acute intracranial abnormality.
MRI brain: No MRI evidence for an acute infarct.
Expressive aphasia, acute encephalopathy:
-as per neuro patient has had recurrent episodes of aphasia that started in 2015. Dr. Arango feels this is progression of cognitive disorder.
-also could have had a component of hypertensive encephalopathy
-EEG as outpt as per Dr. Arango
-cont Plavix/statin
-case discussed with cardiology, multiple med adjustments will be made today (Dr. Catherine to adjust meds), cont to trend BP over next 24 hours
-case discussed with Dr. Arango. No indication to add ASA.
Elevated troponin:
-no CP or acute ECG changes
-h/o non-obstructive CAD
-trops minimally elevated and flat
-likely nonischemic myocardial injury
-cardiology following
Other problems:
DM2: SSI/accuchecks. Stop metformin with a1c 5.5% and Cr 1.9. Diet control strategy only at this time.
Hypokalemia:
GRAHAM on CKD3a: Cr down to 1.9. Outpt renal f/u.
FANG: cont CPAP HS
Obesity due to excess calories
FULL/heparin
Total time spent on today's encounter was 50 minutes which included time spent in counseling the patient/family regarding diagnosis and treatment plan as listed above, goals of care, and symptom management. Case was discussed with nursing staff,
specialists, and care coordinators/case management. All labs and imaging personally reviewed by me. Remainder the time spent in detailed review of previous records, lab data, imaging, and other medical provider documentation.
Anticipated Discharge: 24 - 48 hours
Subjective/Interval History
-
Date of Service: January 20, 2024
No new complaints.
Objective Data
-
Vital Signs:
Vital Signs
Temp Pulse Resp BP Pulse Ox
98.7 F 66 16 194/91 98
01/20/24 03:42 01/20/24 08:41 01/20/24 03:42 01/20/24 08:41 01/20/24 03:42
I&O
01/19/24 01/20/24 01/21/24
06:59 06:59 06:59
Intake Total 900 / 900
Output Total 380 / 380 1400 / 1400
Balance -380 / -380 -500 / -500
[2024-01-20 10:07] LABS: Blood Urea Nitrogen 25 mg/dl (9-20); Carbon Dioxide 28 mmol/L (22-30); Chloride 100 mmol/L (98-107); Estimated Creatinine Clearance 43 ml/min; Glucose 102 mg/dl (70-99); Potassium 3.2 mmol/L (3.5-5.1); Sodium 137 mmol/L (135-145); eGFR 37.48
[2024-01-20 12:03] LABS: Glucose - Point of Care 103 mg/dl (70-99)
--- NOTE | 2024-01-20 13:33 | W.PN.CARDCBS ---
Addendum entered and electronically signed by Lynnette Catherine, 01/20/24 20:31:
Patient also has obstructive sleep apnea and is compliant with CPAP.
Addendum entered and electronically signed by Lynnette Catherine, DO 01/20/24 20:29:
I saw and examined the patient.
The Shipwright Apprentice's note was reviewed and I agree with the note.
Comment: Patient seen and examined. Overall he is feeling better with resolved aphasia. No headaches. No chest pain or pressure. No shortness of breath.
General: No acute distress, AAOX3
Heart: Regular, positive S1/S2, 2/6 SM
Lungs: Bronchovesicular breath sounds, clear bilaterally
Abd: Positive BS, NT/ND, neg rebound/rigidity/guarding
Ext: No edema
Plan:
Expressive aphasia, acute hypertensive encephalopathy with uncontrolled blood pressures.
-Neurology consult reviewed.
-MRI without acute infarct
-Carotid duplex with 50 to 69% right ICA disease. At least 50 to 69% left ICA disease with velocities perhaps greater than 70%. Normal antegrade vertebral flow: Recommend outpatient vascular follow-up
-No arrhythmias on telemetry: Will arrange for outpatient child monitor at time of discharge
-Blood pressures remain elevated�would continue amlodipine 10 mg daily, continue hydralazine 50 mg twice daily however may need higher dose. Add Imdur 30 mg daily. Will change nebivolol to labetalol 200 mg twice daily. For now we will continue
doxazosin at current dose. Will stop hydrochlorothiazide given worsening renal insufficiency. Patient has a history of an GISELLE inhibitor allergy so also avoid ARB's
-Continue Plavix.
-Continue atorvastatin but increase dose to 80 mg daily for goal LDL less than 70 mg/dL
Abnormal cardiac troponin with multiple cardiac risk factors.
-No chest pain suggestive of angina
-Left heart catheterization 2014 without obstructive coronary artery disease
-Discussed recommendations for outpatient stress test
Acute on chronic renal insufficiency
-Will stop hydrochlorothiazide. Stop metformin
-Replete potassium
-Monitor renal function
-Consider outpatient nephrology follow-up
History of diabetes mellitus type 2
-Hemoglobin A1c 5.5%.
-Agree with stopping metformin. Discussed the importance of low carbohydrate/low sugar cardiac healthy diet.
Will follow with you
Original Note:
Today's Communication / Plan
-
Nebivolol stopped. New to labetalol 200 mg BID, Imdur ER 30 mg daily and atorvastatin.
HCTZ and amlodipine stopped
Reduced hydralazine back to outpatient dose of 50 mg BID.
Cont outpatient dose of doxazosin 4 mg BID
52 min including coordination of care and multiple medication changes
Impression / Plan
-
PCP: Dr. Mcginnis
Cardiology: Dr. NESSA Murillo
Impression:
Admitted with expressive aphasia 01/19/24
Suspected HTN encephalopathy
Elevated Troponin
Hypokalemia
Labile HTN
h/o syncope and hypotension admission to [facility] 06/2023
h/o malignant HTN and pulmonary edema 07/2021
h/o TIA thought to be related to HTN 2015 and 2018
DM 2
GRAHAM on CKD 3a
h/o GISELLE inhibitor associated angioedema
Echo 11/29/2023: EF 55 to 60%, mild concentric LVH with stage II diastolic dysfunction, mild to moderate MR, mildly thickened aortic valve peak/mean 16/8 mmHg with trace aortic insufficiency
Plan:
-Patient with labile HTN. In progress note 01/19/24 mentioned making med changes, but did not follow through with orders. Reviewed with patient. Appreciate help of hospitalist attending in noticing the lack of orders.
-As of 01/20/24 updated BP med orders placed by cardiology including, nebivolol stopped. New to labetalol 200 mg BID.
-HCTZ stopped
-Amlodipine stopped.
-New to Imdur ER 30 mg daily on 01/20/24.
-Reduced hydralazine back to outpatient dose of 50 mg BID.
-Cont outpatient dose of doxazosin 4 mg BID
-Troponin peaked at 0.061 in the setting of hypertensive urgency on admission. Patient has a history of labile hypertension with previous admissions for hypertensive emergency and end organ damage but also separately admissions for syncope and
hypotension.
-LDL 79 and new to atorvastatin 80 mg daily
-Will arrange for a 2 week CAM monitor to be applied as an outpatient, cardiology f/u being arranged.
HPI: Patient came to ER yesterday with expressive aphasia and was admitted for possible TIA and cardiology is now consulted for elevated troponin and also for history of labile hypertension. Patient has a history of TIA thought to be related to
hypertension in 2015 and 2018. He also had an admission for malignant hypertension and pulmonary edema in 07/2021. Most recently he was admitted to [facility] 06/2023 with syncope and hypotension. Apparently he was hyponatremic at that time as well and
since then he has been increasing his salt intake by eating Ramen noodles 1-2 times a day. After the [facility] admission the patient saw Dr. Murillo as a new patient on 08/21/2023. Blood pressure in the office that day was good, but home blood pressure
values were not known. During that office visit they talked about possibly discontinuing modafinil as it can be associated with hypertension, but the patient felt he could not stop that medicine. Instead he stayed on all of his usual medications
and the plan was to follow-up with Dr. Murillo in about 6 months or sooner if needed. Patient says that yesterday he was out of breath walking from his car into his home and so he laid down to take a nap. He awoke from the nap unable to speak
normally and his noted expressive aphasia and called 911. In ER the CT of the head was negative and symptoms were improving so no lytic therapy was issued. MRI of the brain from overnight showed no evidence of acute infarct. Troponin was
checked and peaked at 0.061. The patient denies any chest pain. ECG reviewed by me showed NSR without acute ischemic changes.
Progress Note - Air Brush Artist
Subjective
Date of Service: January 20, 2024
He thinks he is doing well, no chest pain, he feels clearer today
Objective
Labs:
01/18/24 17:52
01/20/24 09:39
Labs
Hgb 12.2 g/dL (13.0-18.0) L 01/18/24 17:52
Hct 37.2 % (39.0-52.0) L 01/18/24 17:52
Plt Count 213 10^3/uL (130-400) 01/18/24 17:52
Sodium 137 mmol/L (135-145) 01/20/24 09:39
Potassium 3.2 mmol/L (3.5-5.1) L 01/20/24 09:39
BUN 25 mg/dl (9-20) H 01/20/24 09:39
Creatinine 1.9 mg/dL (0.7-1.3) H 01/20/24 09:39
Glucose 102 mg/dl (70-99) H 01/20/24 09:39
Troponins
01/18/24 01/18/24 01/19/24
17:52 22: 06:51
Troponin I 0.049 H* 0.061 H* 0.058 H*
01/19/24
13:42
Troponin I 0.040 H* D
Vital Signs and I&O:
Vital Signs
Temp Pulse Resp BP Pulse Ox
97.7 F 67 22 164/73 97
01/20/24 11:01 01/20/24 11:01 01/20/24 11:01 01/20/24 11:01 01/20/24 11:01
Vital Signs
Temp Pulse Resp BP Pulse Ox
97.7 F 67 22 164/73 97
01/20/24 11:01 01/20/24 11:01 01/20/24 11:01 01/20/24 11:01 01/20/24 11:01
Intake & Output
01/18/24 01/19/24 01/20/24 01/21/24
06:59 06:59 06:59 06:59
Intake Total 900 / 900
Output Total 380 / 380 1400 / 1400
Balance -380 / -380 -500 / -500
Physical Exam
Physical Exam
GEN: NAD. TAYLORO ro person, place and situation
HEENT: EOMI
LUNGS: No audible wheeze
CV: SR on tele
ABD: ND
EXT: No edema B/L
NEURO: Gross non-focal
SKIN: No rash
[2024-01-20] MEDS: IMDUR (EXTENDED RELEASE) 30 MG PO (14:01)
[2024-01-20] MEDS: TRANDATE 200 MG PO ×2 (14:01→20:36)
[2024-01-20 16:51] LABS: Glucose - Point of Care 112 mg/dl (70-99)
[2024-01-20 21:24] LABS: Glucose - Point of Care 134 mg/dl (70-99)
[2024-01-21 03:00] VITALS: PULSE 57
[2024-01-21 03:58] VITALS: BP 141/65
--- NOTE | 2024-01-21 04:17 | DOWNTIME ---
There was a [employer] Client Centrifugal Operator Downtime on 01/21/2024 from 0100 to 01/21/2024 at 0350. Downtime documentation of patient's care, including medication administrations, has been reconciled in the electronic record per guidelines. Refer to the
patient's paper chart under the miscellaneous tab to see printed paper medication records and downtime forms.
[2024-01-21 07:21] LABS: Glucose - Point of Care 110 mg/dl (70-99)
[2024-01-21 07:30] VITALS: BP 153/65
[2024-01-21] MEDS: APRESOLINE 50 MG PO (08:47)
[2024-01-21] MEDS: TRANDATE 200 MG PO (08:48)
[2024-01-21] MEDS: IMDUR (EXTENDED RELEASE) 30 MG PO (08:48)
[2024-01-21] MEDS: CARDURA 4 MG PO (08:48)
[2024-01-21] MEDS: PLAVIX 75 MG PO (08:48)
[2024-01-21] MEDS: DETROL LA 4 MG PO (08:49)
[2024-01-21] MEDS: CYMBALTA DELAYED RELEASE 60 MG PO (08:49)
[2024-01-21] MEDS: LIPITOR 80 MG PO (08:49)
[2024-01-21] MEDS: NORVASC 10 MG PO (08:49)
[2024-01-21] MEDS: HEPARIN 5000 UNITS SC (08:49)
[2024-01-21] MEDS: PROTONIX 40 MG PO (08:49)
[2024-01-21] MEDS: VITAMIN B-12 1000 MCG PO (08:49)
[2024-01-21] MEDS: FLUSH (NSS) 1 FLUSH IV (08:50)
[2024-01-21] MEDS: THIAMINE INJECTION 100 MG IV (08:50)
[2024-01-21] MEDS: PROVIGIL 200 MG PO (08:51)
[2024-01-21] MEDS: TIMOPTIC 0.5% OPHTHALMIC SOLUTION 1 DROP BOTH EYES (09:06)
[2024-01-21] MEDS: TRUSOPT 2% OPHTHALMIC SOLUTION 1 DROP BOTH EYES (09:06)
--- NOTE | 2024-01-21 10:55 | W.PN.HOSP.TC ---
Addendum entered and electronically signed by Ramirez Rolon MD 01/21/24 13:03:
Total time spent on d/c = 36 min. This included today's physical exam, progress note, review of laboratory and diagnostic data, preparation of discharge documents and prescriptions, and discussions about the pt's hospital course and discharge plan
with the patient and other medical affairs manager involved in the patient's care.
Original Note:
Today's Communication/Plan
-
d/c
Assessment / Plan
Assessment / Plan
Gen: NAD, AAOx3.
Eyes: EOMI, PERRLA, no scleral icterus.
Neck: supple.
CV: Continues to remain RRR, +S1/S2, no m/r/g.
Resp: Continues to remain CTAB, no rales, wheezes, or rhonchi.
Abd: +BS, soft, NT, ND
Skin: No rashes.
Neuro: Continues to remain CN 2-12 intact, non-focal.
Psych: Normal mood and affect.
CT brain: No acute intracranial abnormality.
MRI brain: No MRI evidence for an acute infarct.
Expressive aphasia, acute encephalopathy:
-as per neuro patient has had recurrent episodes of aphasia that started in 2016. Dr. Arango feels this is progression of cognitive disorder.
-also could have had a component of hypertensive encephalopathy
-EEG as outpt as per Dr. Arango
-cont Plavix/statin
-multiple antihypertensive medications adjustments were made and BP has improved
Elevated troponin:
-no CP or acute ECG changes
-h/o non-obstructive CAD
-trops minimally elevated and flat
-likely nonischemic myocardial injury
-cardiology following
Other problems:
DM2: SSI/accuchecks. Stop metformin with a1c 5.5% and Cr 1.9. Diet control strategy only at this time.
Hypokalemia: 40meq K x 2 dose today
GRAHAM on CKD3a: Cr down to 1.9. Outpt renal f/u.
FANG: cont CPAP HS
Obesity due to excess calories
FULL/heparin
Medically cleared for d/c if OK with cardiology
Anticipated Discharge: Today
Subjective/Interval History
-
Date of Service: January 21, 2024
No new complaints.
Objective Data
-
Labs:
Laboratory Results
01/21/24
08:06
Sodium Pending
Potassium Pending
Chloride Pending
Carbon Dioxide Pending
BUN Pending
Creatinine Pending
Glucose Pending
Calcium Pending
Vital Signs:
Vital Signs
Temp Pulse Resp BP Pulse Ox
98.2 F 52 18 153/65 97
01/21/24 07:30 01/21/24 08:49 01/21/24 07:30 01/21/24 08:49 01/21/24 08:42
I&O
01/20/24 01/21/24 01/22/24
06:59 06:59 06:59
Intake Total 900 / 900 1100 / 1100
Output Total 1400 / 1400
Balance -500 / -500 1100 / 1100
--- NOTE | 2024-01-21 11:04 | CM ---
Benson is ready for discharge to home today with no identified needs. His will provide transport home.
[2024-01-21 11:12] LABS: Blood Urea Nitrogen 28 mg/dl (9-20); Calcium 8.8 mg/dl (8.4-10.2); Carbon Dioxide 31 mmol/L (22-30); Chloride 97 mmol/L (98-107); Estimated Creatinine Clearance 39 ml/min; Glucose 93 mg/dl (70-99); Potassium 3.1 mmol/L (3.5-5.1); Sodium 136 mmol/L (135-145); eGFR 33.24
[2024-01-21 11:25] VITALS: BP 133/66
[2024-01-21 11:49] LABS: Glucose - Point of Care 118 mg/dl (70-99)
--- NOTE | 2024-01-21 12:08 | W.PN.CARDCBS ---
Addendum entered and electronically signed by Stephen Murillo MD 01/21/24 16:24:
68-year-old man admitted with hypertensive urgency and encephalopathy with expressive aphasia, troponin is 0.061. Acute on chronic kidney injury presentation. Now he feels well.
PMH: Hypertension, history of syncope, history of malignant hypertension and pulmonary edema, history of TIA, diabetes, CKD, angioedema on GISELLE inhibitors
Allergies: GISELLE inhibitors, contrast
Outpatient meds reviewed
Current medications: Plavix 75 mg a day, Trusopt eyedrops, doxazosin 4 mg twice daily, duloxetine, modafinil 200 mg a day, pantoprazole, Detrol LA, subcu heparin, thiamine, B12, atorvastatin, hydralazine 50 twice daily, labetalol 200 twice daily,
amlodipine 10 mg a day and potassium 40 mill equivalents every 4 days
133/66, pulse 60, resp rate 18, afebrile, sats 97%
ECG sinus rhythm, LVH, possible anteroseptal MO
Potassium is 3.1, BUN and creatinine are 28 and 2.1, baseline creatinine is 1.6. Potassium is being supplemented.
MRA 2021 did not show significant renal artery stenosis, adrenal glands were normal, aorta was normal
Plan:
He seems stable despite his recent admission and is okay for discharge.
He has a follow-up appointment with me. I will probably recommend renal follow-up.
I ordered aldosterone and PRA levels prior to discharge.
Cardiac follow-up in place.
Original Note:
Today's Communication / Plan
-
Continue current medical regimen of amlodipine 10 mg daily, doxazosin 4 mg twice daily, hydralazine 50 mg twice daily, Imdur 30 mg daily and labetalol 200 mg twice daily.
2-week outpatient monitor mailed to patient's home
Consider outpatient ischemic evaluation
Likely would benefit from nephrology consultation as outpatient
Potassium being repleted
BMP in 1 week
Outpatient cardiology follow-up arranged
Stable for discharge from cardiology standpoint
Impression / Plan
-
PCP: Dr. Mcginnis
Cardiology: Dr. NESSA Murillo
Impression:
Admitted with expressive aphasia 01/19/24
Suspected HTN encephalopathy
Elevated Troponin
Hypokalemia
Labile HTN
h/o syncope and hypotension admission to [facility] 06/2023
h/o malignant HTN and pulmonary edema 07/2021
h/o TIA thought to be related to HTN 2015 and 2018
DM 2
GRAHAM on CKD 3a
h/o GISELLE inhibitor associated angioedema
Echo 11/29/2023: EF 55 to 60%, mild concentric LVH with stage II diastolic dysfunction, mild to moderate MR, mildly thickened aortic valve peak/mean 16/8 mmHg with trace aortic insufficiency
Plan:
Expressive aphasia, acute hypertensive encephalopathy with uncontrolled blood pressures.
-Neurology consult reviewed.
-MRI without acute infarct
-Carotid duplex with 50 to 69% right ICA disease. At least 50 to 69% left ICA disease with velocities perhaps greater than 70%. Normal antegrade vertebral flow: Recommend outpatient vascular follow-up
-No arrhythmias on telemetry: Outpatient senior mobile developer has been mailed to patient 01/20/2024
-Continue Plavix.
-Continue atorvastatin but increased dose to 80 mg daily for goal LDL less than 70 mg/dL
Blood pressures remain elevated - Most recent blood pressure morning of 01/21/2024 133/66 improving. Given adjustments in antihypertensive medications over the last 24 to 48 hours would keep on current regimen as noted below
�would continue amlodipine 10 mg daily, doxazosin 4 mg twice daily, hydralazine 50 mg twice daily
-New to Imdur 30 mg daily this admission.
-Switched nebivolol to labetalol 200 mg twice daily.
-Stopped hydrochlorothiazide this admission given worsening renal insufficiency. Patient has a history of an GISELLE inhibitor allergy so also avoid ARB's
-Patient instructed to check BP daily at home. He should bring log and BP machine to follow up cardiology visit
Abnormal cardiac troponin with multiple cardiac risk factors.
-Troponin peaked at 0.061 in the setting of hypertensive urgency on admission, nonischemic myocardial injury
-No chest pain suggestive of angina
-Left heart catheterization 2014 without obstructive coronary artery disease
-Discussed recommendations for outpatient stress test
Acute on chronic renal insufficiency
-Will stop hydrochlorothiazide. Stop metformin
-Replete potassium, ongoing
-Creat 1.7-2.1 this admission
-Likely would benefit from outpatient nephrology follow-up given CKD and multiple high doses of antihypertensive agents
History of diabetes mellitus type 2
-Hemoglobin A1c 5.5%.
-Agree with stopping metformin.
-Discussed the importance of low carbohydrate/low sugar cardiac healthy diet.
HPI: Patient came to ER yesterday with expressive aphasia and was admitted for possible TIA and cardiology is now consulted for elevated troponin and also for history of labile hypertension. Patient has a history of TIA thought to be related to
hypertension in 2015 and 2018. He also had an admission for malignant hypertension and pulmonary edema in 07/2021. Most recently he was admitted to [facility] 06/2023 with syncope and hypotension. Apparently he was hyponatremic at that time as well and
since then he has been increasing his salt intake by eating Ramen noodles 1-2 times a day. After the [facility] admission the patient saw Dr. Murillo as a new patient on 08/21/2023. Blood pressure in the office that day was good, but home blood pressure
values were not known. During that office visit they talked about possibly discontinuing modafinil as it can be associated with hypertension, but the patient felt he could not stop that medicine. Instead he stayed on all of his usual medications
and the plan was to follow-up with Dr. Murillo in about 6 months or sooner if needed. Patient says that yesterday he was out of breath walking from his car into his home and so he laid down to take a nap. He awoke from the nap unable to speak
normally and his noted expressive aphasia and called 911. In ER the CT of the head was negative and symptoms were improving so no lytic therapy was issued. MRI of the brain from overnight showed no evidence of acute infarct. Troponin was
checked and peaked at 0.061. The patient denies any chest pain. ECG reviewed by me showed NSR without acute ischemic changes.
Progress Note - Recoater
Subjective
Date of Service: January 21, 2024
Objective
Labs:
01/18/24 17:52
01/21/24 08:06
Labs
Hgb 12.2 g/dL (13.0-18.0) L 01/18/24 17:52
Hct 37.2 % (39.0-52.0) L 01/18/24 17:52
Plt Count 213 10^3/uL (130-400) 01/18/24 17:52
Sodium 136 mmol/L (135-145) 01/21/24 08:06
Potassium 3.1 mmol/L (3.5-5.1) L 01/21/24 08:06
BUN 28 mg/dl (9-20) H 01/21/24 08:06
Creatinine 2.1 mg/dL (0.7-1.3) H 01/21/24 08:06
Glucose 93 mg/dl (70-99) 01/21/24 08:06
Troponins
01/18/24 01/18/24 01/19/24
17:52 22:26 06:51
Troponin I 0.049 H* 0.061 H* 0.058 H*
01/19/24
13:42
Troponin I 0.040 H* D
Vital Signs and I&O:
Vital Signs
Temp Pulse Resp BP Pulse Ox
98.2 F 52 18 153/65 97
01/21/24 07:30 01/21/24 08:49 01/21/24 07:30 01/21/24 08:49 01/21/24 08:42
Vital Signs
Temp Pulse Resp BP Pulse Ox
98.2 F 52 18 153/65 97
01/21/24 07:30 01/21/24 08:49 01/21/24 07:30 01/21/24 08:49 01/21/24 08:42
Intake & Output
01/19/24 01/20/24 01/21/24 01/22/24
06:59 06:59 06:59 06:59
Intake Total 900 / 900 1100 / 1100
Output Total 380 / 380 1400 / 1400
Balance -380 / -380 -500 / -500 1100 / 1100
Physical Exam
Physical Exam
GEN: No distress, awake, Ox3
HEENT: supple, anicteric, mmm
LUNGS: CTA, no wheezes/rales
CV: Reg, S1/S2, 1/6 syst murmur, no rubs or gallops
ABD: soft, BS+, NT/ND
EXT: No edema, clubbing or cyanosis
NEURO: Gross non-focal
SKIN: No rash, warm dry
[2024-01-21] MEDS: KCL 40 MEQ PO ×2 (12:17→15:41)
[2024-01-21 15:40] VITALS: BP 155/66
--- NOTE | 2024-01-22 12:01 | W.DCSUMMARY ---
Discharge Summary
Discharge Data
Date of Admission: 01/18/24
Date of Discharge: 01/21/24
-
Pending Results: No
Hospital Course
Primary diagnoses:
Expressive aphasia due to acute hypertensive encephalopathy (hypertensive urgency) in the setting of progression of cognitive disorder
Secondary diagnoses:
Nonischemic myocardial injury
Type 2 Diabetes Mellitus
Hypokalemia
Acute Kidney Injury on Chronic Kidney Disease stage 3a
Obstructive Sleep Apnea
Obesity due to excess calories
Consultants:
Cardiology
Neurology
Imaging:
CT brain: No acute intracranial abnormality.
MRI brain: No MRI evidence for an acute infarct.
Hospital course: 68 y/o M who presented with a chief complaint of an episode of expressive aphasia for about 30 minutes as outlined in the H&P done on admission. On admission the patient was severely hypertensive with hypertensive urgency. While
hospitalized his antihypertensive medications were adjusted and his blood pressure improved. Patient was seen by both neurology and cardiology. As per neurology, the patient had had recurrent episodes of aphasia that started in 2016. Dr. Arango
felt his presentation represented progression of cognitive disorder. Neurology did not feel the patient's symptoms represented transient ischemic attack. It was recommended that the patient continue on his home Plavix and statin. EEG was deferred
to the outpatient setting. The patient was discharged in medically stable condition.
Discharge Plan
-
Patient Disposition: Home (Routine Discharge)
Discharge Diagnosis/Procedures: Acute encephalopathy due to progression of cognitive disorder as well as hypertensive encephalopathy
Condition: Good
Diet: 2 Gram Sodium and Diabetic, Carb Controlled
Activity: As tolerated
Driving Restrictions: Not until seen by your Dr
Blood Work: BMP in 1 week
Others Tests: -The cardiology office has arranged for a 2 week monitor to be mailed to your home for you to wear. When the 2 week monitoring period has finished please remove the monitor and mail it back in the postage paid envelope.
-Check BP daily at home. Bring log and BP machine to cardiology follow up on 02/09/24
Referrals:
Navi Mcginnis MD [Family Provider] - in less than 1 week
Stephen Murillo MD [Active] - 02/09/24 1:40 pm (You have an appt to see Dr. Murillo's physician hair or beauty salon assistant, Jaylin, at the [place] office on 02/09/24 at 1:40 PM. Please call [phone] if you need to reschedule.)
Prescriptions:
New
atorvastatin 40 mg Tablet
80 mg PO DAILY Qty: 30 0RF
labetalol 200 mg Tablet
200 mg PO BID Qty: 60 0RF
isosorbide mononitrate 30 mg Tablet Extended Release 24 Hr
30 mg PO DAILY Qty: 30 0RF
cyanocobalamin (vitamin B-12) 1,000 mcg Tablet
1,000 mcg PO DAILY Qty: 0 0RF
thiamine HCl (vitamin B1) 100 mg tablet
100 mg PO DAILY Qty: 30 0RF
Continued
duloxetine 60 MG capsule,delayed release(DR/EC)
60 mg PO DAILY
pantoprazole 40 MG tablet,delayed release (DR/EC)
40 mg PO DAILY
clopidogrel 75 MG tablet
75 mg PO DAILY
modafinil 200 MG tablet
200 mg PO DAILY
solifenacin [Vesicare] 10 MG tablet
10 mg PO DAILY
amlodipine 10 MG tablet
10 mg PO DAILY Qty: 30 0RF
hydralazine 50 MG tablet
50 mg PO BID Qty: 60 0RF
doxazosin 4 mg Tablet
4 mg PO BID
erythromycin 5 mg/gram (0.5 %) Ointment
1 applic BOTH EYES HS
dorzolamide-timolol (PF) 2-0.5 % Dropperette
1 drp BOTH EYES BID
Discontinued
nebivolol 10 MG tablet
10 mg PO DAILY
metformin 1,000 MG tablet
1,000 mg PO BID@0800,1700
atorvastatin 40 MG tablet
40 mg PO DAILY
hydrochlorothiazide 25 MG tablet
25 mg PO DAILY Qty: 30 0RF
Discharge Orders:
Discharge Patient (As Directed); Ordered 01/21/24
Ordered By: Ramirez Rolon
Discharge Date and Time
Discharge Date/Time: 01/21/24 17:01
Print Language: SPANISH
== END 2024-01-21 17:01 | disposition home or self-care (01) ==
LOC: 4 EAST ACU 19:23
PROVIDERS: ADMITTING PHYSICIAN Internal Medicine; ATTENDING PHYSICIAN Internal Medicine; CONSULT PHYSICIAN Nuclear Medicine Nuclear Cardiology; CONSULT PHYSICIAN Psychiatry & Neurology Neurology; EMERGENCY PHYSICIAN Emergency Medicine; FAMILY PHYSICIAN Internal Medicine
DX: I16.0 Hypertensive urgency (principal); I67.4 Hypertensive encephalopathy; I5A Non-ischemic myocardial injury (non-traumatic); R47.01 Aphasia; R47.9 Unspecified speech disturbances; I12.9 Hypertensive chronic kidney disease with stage 1 through stage 4 chronic kidney disease, or unspecified chronic kidney disease; E78.00 Pure hypercholesterolemia, unspecified; E11.22 Type 2 diabetes mellitus with diabetic chronic kidney disease; K21.9 Gastro-esophageal reflux disease without esophagitis; R41.0 Disorientation, unspecified; E87.6 Hypokalemia; N18.32 Chronic kidney disease, stage 3b; N32.81 Overactive bladder; D64.9 Anemia, unspecified; R06.09 Other forms of dyspnea; R51.9 Headache, unspecified; I65.23 Occlusion and stenosis of bilateral carotid arteries; I25.10 Atherosclerotic heart disease of native coronary artery without angina pectoris; N17.9 Acute kidney failure, unspecified; I95.9 Hypotension, unspecified; R94.31 Abnormal electrocardiogram [ECG] [EKG]; E53.8 Deficiency of other specified B group vitamins; F09 Unspecified mental disorder due to known physiological condition; E66.09 Other obesity due to excess calories; J34.1 Cyst and mucocele of nose and nasal sinus; G47.33 Obstructive sleep apnea (adult) (pediatric); Z87.891 Personal history of nicotine dependence; Z96.659 Presence of unspecified artificial knee joint; Z86.73 Personal history of transient ischemic attack (TIA), and cerebral infarction without residual deficits; Z79.02 Long term (current) use of antithrombotics/antiplatelets; Z91.148 Patient's other noncompliance with medication regimen for other reason; Z87.19 Personal history of other diseases of the digestive system; Z91.041 Radiographic dye allergy status; Z79.84 Long term (current) use of oral hypoglycemic drugs; Z88.8 Allergy status to other drugs, medicaments and biological substances; Z83.3 Family history of diabetes mellitus; Z82.49 Family history of ischemic heart disease and other diseases of the circulatory system; Z68.34 Body mass index [BMI] 34.0-34.9, adult
CPT/HCPCS: 70450; 70551; 71046; 80048; 80053; 80061; 80306; 81003; 81015; 82607; 82962; 83036; 83735; 84443; 84484; 85025; 85652; 86140; 93005; 93880; 94660; 96365; 96366; 99291; G0378

== ENCOUNTER → 2024-02-09 09:53 | Outpatient (REF) | payer MEDICARE, OTHER, SELFPAY ==
[2024-02-09 11:42] LABS: Blood Urea Nitrogen 22 mg/dl (9-20); Calcium 9.2 mg/dl (8.4-10.2); Carbon Dioxide 32 mmol/L (22-30); Chloride 102 mmol/L (98-107); Glucose 103 mg/dl (70-99); Potassium 3.5 mmol/L (3.5-5.1); Sodium 143 mmol/L (135-145); eGFR 37.48
== END ==
LOC: REG 09:53
PROVIDERS: ATTENDING PHYSICIAN Family Medicine; FAMILY PHYSICIAN Internal Medicine
DX: Z09 Encounter for follow-up examination after completed treatment for conditions other than malignant neoplasm (principal); I10 Essential (primary) hypertension; E87.6 Hypokalemia
CPT/HCPCS: 36415; 80048

== ENCOUNTER → 2024-05-27 09:36 | Outpatient (REF) | payer MEDICARE, OTHER, SELFPAY ==
[2024-05-27 10:18] LABS: % Basophils 1.9 % (0-2); % Eosinophils 5.2 % (0-6); % Immature Granulocytes 0.1 % (0-0.5); % Lymphocytes 15.3 % (20.5-51.1); % Monocytes 7.6 % (1.7-9.3); % Neutrophils 69.9 % (42.2-75.2); Absolute Basophils 0.1 10^3/uL (0-0.2); Absolute Eosinophils 0.4 10^3/uL (0-0.7); Absolute Lymphocytes 1.1 10^3/uL (1.2-3.4); Absolute Monocytes 0.6 10^3/uL (0.1-0.6); Absolute Neutrophils 5.2 10^3/uL (1.4-6.5); Hematocrit 35.7 % (39.0-52.0); Hemoglobin 11.8 g/dL (13.0-18.0); Mean Corp Hgb Conc. 33.1 g/dL (33.0-37.0); Mean Corpuscular Hgb 28.4 pg (27.0-31.0); Mean Corpuscular Volume 85.8 fL (80.0-94.0); Mean Platelet Volume 11.5 fL (7.4-10.4); Nucleated Red Blood Cells % 0 % (-); Platelet Count 228 10^3/uL (130-400); Red Blood Cell Count 4.16 10^6/uL (4.70-6.10); Red Cell Dist. Width 13.2 % (11.5-14.5); White Blood Cell Count 7.4 10^3/uL (4.8-10.8)
[2024-05-27 10:48] LABS: Carbon Dioxide 31 mmol/L (22-30); Chloride 103 mmol/L (98-107); Potassium 3.7 mmol/L (3.5-5.1); Sodium 142 mmol/L (135-145)
[2024-05-27 11:16] LABS: TSH Reflex To Free T4 1.38 uIU/ml (0.47-4.68)
[2024-05-27 11:35] LABS: Vitamin B12 467 pg/ml (239-931)
[2024-05-27 12:13] LABS: Glycohemoglobin (HgbA1c) 5.4 % (4.0-5.6)
== END ==
LOC: REG 09:36
PROVIDERS: ATTENDING PHYSICIAN Internal Medicine; OTHER PHYSICIAN Specialist
DX: R73.09 Other abnormal glucose (principal); E11.9 Type 2 diabetes mellitus without complications; E53.8 Deficiency of other specified B group vitamins; I11.0 Hypertensive heart disease with heart failure
CPT/HCPCS: 36415; 80051; 82607; 83036; 84443; 85025

== ENCOUNTER → 2024-10-18 09:32 | Outpatient (REF) | payer MEDICARE, OTHER, SELFPAY ==
[2024-10-18 11:44] LABS: Blood Urea Nitrogen 30 mg/dl (9-20); Calcium 9.2 mg/dl (8.4-10.2); Carbon Dioxide 26 mmol/L (22-30); Chloride 107 mmol/L (98-107); Glucose 125 mg/dl (70-99); Potassium 4.0 mmol/L (3.5-5.1); Sodium 142 mmol/L (135-145); eGFR 29.62
== END ==
LOC: REG 09:32
PROVIDERS: ATTENDING PHYSICIAN Specialist; FAMILY PHYSICIAN Internal Medicine
DX: I10 Essential (primary) hypertension (principal); N18.32 Chronic kidney disease, stage 3b
CPT/HCPCS: 36415; 80048; 82570; 83970; 84100; 84156